=== PATIENT | female | born 1960 | race Caucasian/White ===

== ENCOUNTER → 2019-07-12 | Outpatient (CLI) | payer MEDICARE ==
[2019-07-12 16:26] LABS: African American GFR (CKD) >90 (>60 ml/min/1.73 sqM); Blood Urea Nitrogen 13 mg/dL (7-17)
--- NOTE | 2019-07-12 17:06 | CT ---
EXAMINATION TYPE: CT angio chest DATE OF EXAM: 07/12/2019 4:57 PM COMPARISON: None HISTORY: Tachycardia, dyspnea. Hx LT breast ca CT DLP: 514.90 mGycm Automated exposure control for dose reduction was used. CONTRAST: CTA scan of the thorax is performed with IV Contrast, patient injected with 100 mL of Isovue 370, pul monary embolism protocol. There are 3-D post processed images.. FINDINGS: The lungs are clear of consolidation. There is no evidence of a pulmonary mass. There is no pleural e ffusion. Heart size is normal. There is no pericardial effusion. There is mild enlargement of the thyroid gland. There is no mediastinal adenopathy. There are no stephan r masses. Thoracic aorta shows no aneurysm or dissection. Heart size is normal. There is no pericardial effusion. There is normal contrast opacification of the pulmonary arteries. There are no filling defects. Upper abdominal soft tissues show large calcified gallstone. Spleen is enlarged and measures 14.5 cm. There is some spurring in the thoracic spine. I see no bony destructive process. There is minimal ant erior wedging of a lower thoracic vertebra up to 5-10%. IMPRESSION: No evidence of pulmonary embolism. Mild splenomegaly. Mild goiter. IMPRESSION:
== END | disposition home or self-care (01) ==
LOC: RADCTMAIN 15:26
PROVIDERS: ATTEND Registered Nurse Oncology
DX: R00.0 Tachycardia, unspecified (principal); R06.4 Hyperventilation; R06.03 Acute respiratory distress; C50.412 Malignant neoplasm of upper-outer quadrant of left female breast
CPT/HCPCS: 82565; 84520; 71275; 36415; Q9967

== ENCOUNTER → 2019-07-18 | Outpatient (CLI) | payer MEDICARE ==
--- NOTE | 2019-07-19 07:31 | ECHOF ---
Referral Reason:Z01.818 Encounter for other preprocedural examinat MEASUREMENTS -------- HEIGHT: 172.7 cm WEIGHT: 96.6 kg BP: 149/80 RVIDd: 2.8 cm (< 3.3) IVSd: 1.2 cm (0.6 - 1.1) LVIDd: 3.3 cm (3.9 - 5.3) LVPWd: 1.1 cm (0.6 - 1.1) IVSs: 1.6 cm LVIDs: 2.4 cm LVPWs: 1.8 cm LA Diam: 2.7 cm (2.7 - 3.8) LAESV Index (A-L): 11.75 ml/m Ao Diam: 2.8 cm (2.0 - 3.7) AV Cusp: 1.7 cm (1.5 - 2.6) MV EXCURSION: 16.095 mm (> 18.000) MV EF SLOPE: 60 mm/s (70 - 150) EPSS: 1.2 cm MV E Neto: 0.92 m/s MV DecT: 170 ms MV A Neto: 1.08 m/s MV E/A Ratio: 0.86 RAP: 5.00 mmHg RVSP: 24.55 mmHg FINDINGS -------- Sinus rhythm. This was a technically adequate study. The left ventricular size is normal. There is borderline concentric left ventricular hypertrophy. Overall left ventricular systolic function is normal with, an EF between 60 - 65 %. The diastolic filling pattern is normal for the age of the patient 9.82. The right ventricle is normal in size. Normal LA size by volume 22+/-6 ml/m2. The right atrium is normal in size. Interatrial and interventricular septum intact. The aortic valve is trileaflet and appears structurally normal. There is trace mitral regurgitation. Mild tricuspid regurgitation present. Right ventricular systolic pressure is normal at < 35 mmHg. Trace/mild (physiologic) pulmonic regurgitation. The aortic root size is normal. Normal inferior vena cava with normal inspiratory collapse consistent with estimated right atrial pre ssure of 5 mmHg. There is no pericardial effusion. CONCLUSIONS -------- 1. Sinus rhythm. 2. This was a technically adequate study. 3. The left ventricular size is normal. 4. There is borderline concentric left ventricular hypertrophy. 5. Overall left ventricular systolic function is normal with, an EF between 60 - 65 %. 6. The diastolic filling pattern is normal for the age of the patient 9.82 7. The right ventricle is normal in size. 8. Normal LA size by volume 22+/-6 ml/m2. 9. The right atrium is normal in size. 10. Interatrial and interventricular septum intact. 11. The aortic valve is trileaflet and appears structurally normal. 12. There is trace mitral regurgitation. 13. Mild tricuspid regurgitation present. 14. Right ventricular systolic pressure is normal at < 35 mmHg. 15. Trace/mild (physiologic) pulmonic regurgitation. 16. The aortic root size is normal. 17. Normal inferior vena cava with normal inspiratory collapse consistent with estimated right atrial pressure of 5 mmHg. 18. There is no pericardial effusion. OBSTETRICAL TECH: Daniela Perez RDCS
== END | disposition home or self-care (01) ==
LOC: RADECHMAIN 13:00
PROVIDERS: ATTEND Internal Medicine Hematology & Oncology
DX: Z01.818 Encounter for other preprocedural examination (principal); I08.8 Other rheumatic multiple valve diseases; C50.412 Malignant neoplasm of upper-outer quadrant of left female breast
CPT/HCPCS: 93306

== ENCOUNTER → 2020-04-09 | Outpatient (CLI) | payer MEDICARE ==
--- NOTE | 2020-04-09 09:52 | XR ---
EXAMINATION TYPE: XR lumbosacral spine min 4V DATE OF EXAM: 04/09/2020 COMPARISON: NONE HISTORY: 59-year-old female low back pain, swelling TECHNIQUE: 5 views FINDINGS: 2.6 cm gallstone. Gassy colon. Postsurgical changes of L4-S1 posterior and interbody lumbar fusion. Corresponding laminectomies. Fac et arthropathy above the fusion. Vertebral body heights are preserved and alignment is maintained. IMPRESSION: 1. L4-S1 posterior and interbody fusion with corresponding laminectomies. No vertebral compression co llapse or malalignment. Facet arthropathy above the fusion. 2. A 2.6 cm gallstone.
== END | disposition home or self-care (01) ==
LOC: RADXRMAIN 08:11
PROVIDERS: ATTEND Family Medicine
DX: M47.816 Spondylosis without myelopathy or radiculopathy, lumbar region (principal); Z98.1 Arthrodesis status; Z98.890 Other specified postprocedural states
CPT/HCPCS: 72110

== ENCOUNTER → 2020-06-20 | Outpatient (CLI) | payer MEDICARE ==
--- NOTE | 2020-06-20 08:34 | US ---
EXAMINATION TYPE: US abdomen complete DATE OF EXAM: 06/20/2020 COMPARISON: CT 07/12/19 CLINICAL HISTORY: 60-year-old female R10.9 ABD/PELVIC PAIN. TECHNIQUE: Multiple sonographic images of the abdomen are obtained. FINDINGS: EXAM MEASUREMENTS: Liver Length: 20.5 cm Gallbladder Wall: 0.2 cm CBD: 0.5 cm Spleen: 12.8 cm Right Kidney: 12.2 x 6.7 x 4.6 cm Left Kidney: 12.7 x 6.1 x 5.1 cm Pancreas: Suboptimal visualization of the pancreatic body and tail due to shadowing from bowel gas. Liver: Enlarged but with overall homogeneous echotexture and no focal lesion. Gallbladder: 2cm gallstone with shadowing. No abnormal distention or wall thickening. Evidence for sonographic Anderson's sign: No CBD: wnl Spleen: Within normal limits. Right Kidney: Mid pole cyst = 2.5 x 2.0 x 2.0 cm, No hydronephrosis. Left Kidney: No hydronephrosis. Upper IVC: wnl Abd Aorta: wnl IMPRESSION: 1. Hepatomegaly (20.5 cm). 2. A 2 cm gallstone. No acute cholecystitis or biliary ductal dilatation. 3. A 2.5 cm benign right mid pole renal cyst.
--- NOTE | 2020-06-20 10:56 | CT ---
EXAMINATION TYPE: CT lumbar spine wo con DATE OF EXAM: 06/20/2020 COMPARISON: Plain film 04/09/2020 HISTORY: Back pain CT DLP: 1365.1 mGycm Automated exposure control for dose reduction was used. An unenhanced CT of the lumbar spine was performed. Bone and soft tissue window settings are submitt ed as well as coronal and sagittal reconstructions. FINDINGS: Patient is status post posterior fusion L4-S1, intervertebral spacing block present L5-S1, loss of di sc height present at intervertebral levels, endplates are regular at L4-5, there is associated vacuum phenomenon. There is abnormal low attenuation anterior to the lumbar vertebral bodies extending from L3-4 through the sacral region, the collection measures approximately 6.3 cm in transverse dimension by 16 to 17 cm in cephalad to caudal dimension by 2 cm in anterior to posterior dimension. There is some abnormal asymmetric thickening of the musculature medially adjacent on the left, some low-attenuation is pres ent within the musculature. Unroofing procedure has been performed at L4 and L5, there are facet arthropathy changes. T12-L1 shows posterior extension endplate disc complex causing anterior mass effect on the thecal sac . Mild spinal stenosis. Her graft the sacrum shows a sclerotic appearance as does portions of the rig ht ilium greater than left L5. L1-L2: Posterior extension endplate disc complex causes mild anterior mass effect on the thecal sac. No significant foraminal encroachment or spinal stenosis. L2-L3: Posterior extension endplate disc complex causes anterior mass effect on the thecal sac and li phoebe moderate spinal stenosis. No definite foraminal encroachment. Facet arthropathy with hypertrophy ligamentum flavum causes posterior lateral mass effect on the thecal sac. L3-L4: Posterior extension endplate disc complex causes anterior mass effect on the thecal sac, mild to moderate spinal stenosis. There is marked facet arthropathy change. L4-L5: Loss of disc height is present as described. No evident spinal stenosis or disc herniation. Th ere is artifact present which may limit evaluation. L5-S1: Postop changes are noted, there is artifact present. IMPRESSION: Indeterminate fluid collection anterior to the spine, difficult to exclude abscess. There may be unde rlying osteomyelitis at the level of the sacrum and possibly L5. Difficult to exclude discitis at L4- 5, noncontrast exam, there may be myositis in the musculature in the left hemipelvis as described, le ft piriformis, difficult to exclude intramuscular abscess A [place] level critical message alert has been initiated for Hayden Lopez MD~[id number] via the [employer] Critical Results System on 06/20/2020 10:54 AM. This message alert has been sent to Isma Amador~MYKE via the preferences provided by the clinician for the receipt of Radiology Critical Findings. Message ID [id number].
== END | disposition home or self-care (01) ==
LOC: RADUSWWP 07:31
PROVIDERS: ATTEND Internal Medicine Hematology & Oncology
DX: K80.20 Calculus of gallbladder without cholecystitis without obstruction (principal); N28.1 Cyst of kidney, acquired; R16.0 Hepatomegaly, not elsewhere classified; M54.5 Low back pain
CPT/HCPCS: 72131; 76700

== ENCOUNTER → 2020-07-14 | Outpatient (CLI) | payer MEDICARE ==
--- NOTE | 2020-07-15 03:31 | MR ---
EXAMINATION TYPE: MR lumbar spine wo/w con DATE OF EXAM: 07/14/2020 COMPARISON: 11/18/2011 HISTORY: Vertebral osteomyelitis CONTRAST: Standard multiplanar, multisequence MRI departmental protocol utilizing 10 mL intravenous Gadavist ga dolinium contrast. The lumbar vertebra have normal alignment. There is metal artifact from posterior fusion surgery from L4 to S1. There is mild disc space narrowing from L4 to S1. There is abnormal fluid accumulation ant erior to the lower lumbar spine and sacrum extending from the level of L4 to the S3 vertebra. Fluid m easures up to 2 cm in thickness. The contrast images show enhancement of the margins of the fluid. There is no lumbar compression fracture. The lower lumbar vertebra are obscured to some extent by met al artifact from the fusion surgery. I think that there is some enhancement of the anterior aspect of the L5 vertebral body. There is no evidence of lumbar spinal stenosis. The lumbar nerve roots appear normal. I do not see any nerve root enhancement. The visualized sacroiliac joints are intact. IMPRESSION: There is prevertebral extensive fluid accumulation as above consistent with paraspinal abscess. There is mild enhancement of the margins of the fluid that is suggestive of inflammatory process. There is enhancement of Anterior L5 vertebral body which could be a site of osteomyelitis.
== END | disposition home or self-care (01) ==
LOC: RADMRIMAIN 15:08
PROVIDERS: ATTEND Internal Medicine Hematology & Oncology
DX: C50.412 Malignant neoplasm of upper-outer quadrant of left female breast (principal); R93.7 Abnormal findings on diagnostic imaging of other parts of musculoskeletal system
CPT/HCPCS: 72158; A9585

== ENCOUNTER → 2021-02-18 | Outpatient (CLI) | payer MEDICARE ==
--- NOTE | 2021-02-18 12:16 | MR ---
EXAMINATION TYPE: MR lumbar spine wo/w con DATE OF EXAM: 02/18/2021 COMPARISON: 07/14/2020 HISTORY: Pain, infection TECHNIQUE: Multiplanar, multisequence images of the lumbar spine were acquired utilizing 10 mL intravenous Gadav ist gadolinium contrast. T12-L1: There is a central disc protrusion with mild central canal stenosis. L1-L2: Normal disc appearance without desiccation. No herniation, protrusion or disc bulging. No ca nal stenosis is present. Foramina are patent bilaterally. L2-L3: There is a disc bulge with mild bilateral facet arthropathy and ligamentum flavum hypertrophy resulting in mild bilateral neural foraminal narrowing, similar to the prior exam. L3-L4: There are postoperative changes with a disc bulge resulting in mild bilateral neural foraminal narrowing and mild central canal stenosis, unchanged. L4-L5: There are postoperative changes with moderate right and mild left neural foraminal narrowing, similar to the prior exam. L5-S1: There are postoperative changes without significant central canal stenosis or neural foraminal narrowing. The patient is status post posterior fusion and decompression of L4-S1. There is extensive susceptibi lity artifact due to hardware. Vertebral body heights are grossly preserved. T2 bright lesion is noted in the right kidney, likely a cyst but ultrasound could be performed if con firmation is clinically necessary. The previously seen T2 bright collection anterior to the lumbosacr al spine has decreased in size and measures up to 6.5 x 1.0 cm now only anterior to the sacral spine. No definite internal or surrounding enhancement. IMPRESSION: Interval decrease in size in the collection anterior to the sacrum. There is no definite internal or surrounding enhancement to suggest infection.
== END | disposition home or self-care (01) ==
LOC: RADMRIMAIN 10:31
PROVIDERS: ATTEND Internal Medicine Infectious Disease
DX: M54.5 Low back pain (principal)
CPT/HCPCS: 72158; A9585

== ENCOUNTER 2021-06-08 16:46 | Inpatient (IN) | payer MEDICARE ==
--- NOTE | 2021-06-08 20:18 | ED ---
General Adult HPI - General Chief complaint: Skin/Abscess/Foreign Body Stated complaint: open wound Time Seen by Provider: 06/08/21 20:08 Source: patient Mode of arrival: ambulatory Limitations: no limitations - History of Present Illness Initial comments: Dictation was produced using [employer] dictation software. please excuse any grammatical, word or spelling errors. Chief Complaint: 61-year-old female presents to the emergency department for her chronic wound History of Present Illness: 61-year-old female several years ago in 2002 she had back surgery performed by surgeon who is no longer here [facility]. Proximally year 2 she had some drainage from the surgical site. She's been following up with infectious disease. Over the last couple days she's been complaining of pain to that area. She called her infectious disease doctor was seen in the office. Infectious disease doctor pressed on the area with drainage concerning for infection. She was instructed to come to the emergency department for MRI in the morning and spine surgery consultation. Patient denies any constitutional symptoms. No saddle anesthesia. No bowel or bladder incontinence or retention. The ROS documented in this emergency department record has been reviewed and confirmed by me. Those systems with pertinent positive or negative responses have been documented in the HPI. All other systems are other negative and/or noncontributory. PHYSICAL EXAM: General Impression: Alert and oriented x3, not in acute distress HEENT: Normocephalic atraumatic, extra-ocular movements intact, pupils equal and reactive to light bilaterally, mucous membranes moist. Cardiovascular: Heart regular rate and rhythm Chest: Able to complete full sentences, no retractions, no tachypnea Musculoskeletal: Pulses present and equal in all extremities, no peripheral edema Motor: no focal deficits noted Neurological: CN II-XII grossly intact, no focal motor or sensory deficits noted Skin: Intact with no visualized rashes Back: Surgical site at the lumbar midline area, there is a small punctate wound in the middle of the scar with some mild drainage Psych: Normal affect and mood ED course: 61-year-old female presents to the emergency department for alleged instruction to come to the ER to be admitted for a.m. MRI and orthopedic surgery consult. Patient has a draining wound that's been exacerbated. She states that she was evaluated in ID clinic today and she was instructed to come to the emergency room. Vital signs upon arrival are within acceptable limits. More history was obtained from Dr. adams. He states that patient has had a chronic wound. There is strong concern for infection especially in the office when Dr. Martin drain the wound. There was purulent material that was removed. Dr. Martin recommends that patient be started on vancomycin and cefepime and to have spine surgery on consult. 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 - Related Data Home Medications Medication Instructions Recorded Confirmed Aspirin EC [Ecotrin] 81 mg PO HS 08/06/15 06/08/21 Levothyroxine Sodium [Synthroid] 100 mcg PO DAILY 08/06/15 06/08/21 Multivitamins, Thera [Theragran] 1 tab PO DAILY 08/06/15 06/08/21 Simvastatin [Zocor] 40 mg PO DAILY 08/06/15 06/08/21 metFORMIN HCL [Glucophage] 1,000 mg PO BID 08/06/15 06/08/21 Carvedilol [Coreg] 6.25 mg PO BID 06/08/21 06/08/21 Furosemide [Lasix] 40 mg PO DAILY 06/08/21 06/08/21 Losartan Potassium [Cozaar] 25 mg PO DAILY 06/08/21 06/08/21 Neratinib Maleate [Nerlynx] 240 mg PO DAILY 06/08/21 06/08/21 Pregabalin [Lyrica] 150 mg PO BID 06/08/21 06/08/21 Pyridoxine HCl (Vitamin B6) 100 mg PO HS 06/08/21 06/08/21 [Vitamin B-6] Spironolactone [Aldactone] 12.5 mg PO DAILY 06/08/21 06/08/21 glipiZIDE XL [Glucotrol XL] 2.5 mg PO BID 06/08/21 06/08/21 Allergies Allergy/AdvReac Type Severity Reaction Status Date / Time adhesive tape AdvReac Unknown Verified 06/08/21 17:57 Review of Systems ROS Statement: Those systems with pertinent positive or pertinent negative responses have been documented in the HPI. ROS Other: All systems not noted in ROS Statement are negative. Past Medical History Past Medical History: Diabetes Mellitus, Hyperlipidemia, Hypertension, Musculoskeletal Disorder, Thyroid Disorder Additional Past Medical History / Comment(s): HX OF ANEMIA, BACK PAIN. History of Any Multi-Drug Resistant Organisms: MRSA Date of last positivie culture/infection: 05/26/20 MDRO Source:: back Past Surgical History: Back Surgery, Orthopedic Surgery, Tubal Ligation Additional Past Surgical History / Comment(s): LEFT LEG SURG FOR FX X2 (1986), LEFT FUSED ANKLE, CARPAL TUNNEL. Past Anesthesia/Blood Transfusion Reactions: Postoperative Nausea & Vomiting (PONV) Past Psychological History: No Psychological Hx Reported Smoking Status: Never smoker Past Alcohol Use History: Rare Past Drug Use History: None Reported - Past Family History Father Family Medical History: Cancer Additional Family Medical History / Comment(s): ? PRE-LEUKEMIA General Exam Limitations: no limitations Course Vital Signs 06/08/21 17:54 Temperature 99.3 F Pulse Rate 98 Respiratory 18 Rate Blood Pressure 137/78 O2 Sat by Pulse 98 Oximetry Disposition Referrals: Eloy Correa Jr, DO [Primary Care Provider] - 1-2 days
[2021-06-08] MEDS ORDERED: VANCOMYCIN IV PER PHARMACY 1 EACH MISC MISCELLANE PRN (20:43)
[2021-06-08] MEDS ORDERED: CEFEPIME 2 GM in SODIUM CHLORIDE 0.9% 100 ML IVPB STA (20:44)
[2021-06-08] MEDS ORDERED: NALOXONE 0.4 MG/ML 1 ML VIAL IV PRN (20:52)
[2021-06-08 20:59] LABS: Basophils % (A) 1 %; Eosinophils # (A) 0.2 k/uL (0-0.7); Eosinophils % (A) 3 %; HCT 37.2 % (34.0-46.0); HGB 12.1 gm/dL (11.4-16.0); Lymphocytes # (A) 1.1 k/uL (1.0-4.8); Lymphocytes % (A) 21 %; MCHC 32.7 g/dL (31.0-37.0); MCV 91.7 fL (80.0-100.0); Mean Platelet Volume 7.7; Monocytes # (A) 0.4 k/uL (0-1.0); Monocytes % (A) 8 %; Neutrophils # (A) 3.2 k/uL (1.3-7.7); Neutrophils % (A) 65 %; Platelet Count 205 k/uL (150-450); RBC 4.05 m/uL (3.80-5.40); RDW 15.3 % (11.5-15.5); WBC 4.9 k/uL (3.8-10.6)
[2021-06-08 21:13] LABS: C Reactive Protein 0.7 mg/dL (<1.0); Potassium 3.8 mmol/L (3.5-5.1)
[2021-06-08 21:37] LABS: Erythrocyte Sedimentation Rate 29 mm/hr (0-20)
[2021-06-08] MEDS ORDERED: VANCOMYCIN 2,000 MG in SODIUM CHLORIDE 0.9% 500 ML 500 ML IVPB ONE (22:00)
[2021-06-09] MEDS: [UNRECOGNIZED DRUG - OTHER] PO SCH (10:18)
[2021-06-09] MEDS: carvediloL 6.25 MG TAB PO SCH ×2 (10:56→18:15)
[2021-06-09] MEDS: LEVOTHYROXINE 100 MCG TAB PO SCH (10:56)
[2021-06-09] MEDS: ATORVASTATIN 20 MG TAB PO SCH (10:56)
[2021-06-09] MEDS: LOSARTAN 25 MG TAB PO SCH (10:56)
[2021-06-09] MEDS: FUROSEMIDE 40 MG TAB PO SCH (10:56)
[2021-06-09] MEDS: PREGABALIN 75 MG CAP PO SCH ×2 (10:57→21:01)
[2021-06-09] MEDS: metFORMIN 500 MG TAB PO SCH ×2 (10:57→21:00)
[2021-06-09] MEDS: SPIRONOLACTONE 25 MG TAB PO SCH (10:57)
[2021-06-09] MEDS: MULTIVITAMINS, THERA 1 EACH TAB PO SCH (11:35)
--- NOTE | 2021-06-09 14:23 | P.HPIM ---
History of Present Illness H&P Date: 06/09/21 Chief Complaint: draining wound This is a pleasant 61-year-old white female. She has a history of lumbosacral surgery 2002. She then had breast cancer and underwent radiation and chemotherapy in 2019. She reports in March 2020 experiencing a blister/abscess to her lumbosacral back, midline, where she had the back surgery previously. Shes had drainage from the area. She has seen infectious disease about it. She has seen [facility] for several days about this and been on antibiotics with Cipro for sometime. It is not cleared up. She came in emergency room today at the behest of Dr. Martin after had seen the wound in the office and wanted an MRI and evaluation by spine orthopedics. Currently she has no complaints of chest pains, pressures, shortness breath, nausea vomiting. She would like to go home as soon as possible. She is scheduled for an MRI or else mine soon. Review of Systems All systems: negative Past Medical History Past Medical History: Diabetes Mellitus, Hyperlipidemia, Hypertension, Musculoskeletal Disorder, Thyroid Disorder Additional Past Medical History / Comment(s): HX OF ANEMIA, BACK PAIN. History of Any Multi-Drug Resistant Organisms: MRSA Date of last positivie culture/infection: 05/26/20 MDRO Source:: back Past Surgical History: Back Surgery, Orthopedic Surgery, Tubal Ligation Additional Past Surgical History / Comment(s): LEFT LEG SURG FOR FX X2 (1986), LEFT FUSED ANKLE, CARPAL TUNNEL. Past Anesthesia/Blood Transfusion Reactions: Postoperative Nausea & Vomiting (PONV) Past Psychological History: No Psychological Hx Reported Smoking Status: Never smoker Past Alcohol Use History: Rare Past Drug Use History: None Reported - Past Family History Father Family Medical History: Cancer Additional Family Medical History / Comment(s): ? PRE-LEUKEMIA Medications and Allergies Home Medications Medication Instructions Recorded Confirmed Type Aspirin EC [Ecotrin] 81 mg PO HS 08/06/15 06/08/21 History Levothyroxine Sodium [Synthroid] 100 mcg PO DAILY 08/06/15 06/08/21 History Multivitamins, Thera [Theragran] 1 tab PO DAILY 08/06/15 06/08/21 History Simvastatin [Zocor] 40 mg PO DAILY 08/06/15 06/08/21 History metFORMIN HCL [Glucophage] 1,000 mg PO BID 08/06/15 06/08/21 History Carvedilol [Coreg] 6.25 mg PO BID 06/08/21 06/08/21 History Furosemide [Lasix] 40 mg PO DAILY 06/08/21 06/08/21 History Losartan Potassium [Cozaar] 25 mg PO DAILY 06/08/21 06/08/21 History Neratinib Maleate [Nerlynx] 240 mg PO DAILY 06/08/21 06/08/21 History Pregabalin [Lyrica] 150 mg PO BID 06/08/21 06/08/21 History Pyridoxine HCl (Vitamin B6) 100 mg PO HS 06/08/21 06/08/21 History [Vitamin B-6] Spironolactone [Aldactone] 12.5 mg PO DAILY 06/08/21 06/08/21 History glipiZIDE XL [Glucotrol XL] 2.5 mg PO BID 06/08/21 06/08/21 History Allergies Allergy/AdvReac Type Severity Reaction Status Date / Time adhesive tape AdvReac Unknown Verified 06/08/21 17:57 Physical Exam Vitals: Vital Signs Temp Pulse Resp BP Pulse Ox 06/09/21 06:30 97.9 F 77 18 125/71 98 06/09/21 05:00 87 18 97 06/09/21 04:00 18 06/09/21 02:03 18 06/09/21 00:00 91 16 132/78 95 06/08/21 21:00 89 18 131/74 95 06/08/21 17:54 99.3 F 98 18 137/78 98 Intake and Output 06/08/21 06/09/21 06/09/21 22:59 06:59 14:59 Other: Weight 111.584 kg - Constitutional General appearance: obese - EENT Eyes: PERRLA - Neck Neck: no lymphadenopathy, normal ROM Carotids: bilateral: upstroke normal Thyroid: bilateral: normal size - Respiratory Respiratory: bilateral: CTA - Cardiovascular Rhythm: regular Heart sounds: normal: S1, S2 - Gastrointestinal General gastrointestinal: normal bowel sounds - Integumentary small pore from midline Lspine, No current discharge.minimnal periwound erythema - Neurologic Neurologic: CNII-XII intact - Musculoskeletal Musculoskeletal: gait normal - Psychiatric Psychiatric: A&O x's 3 Results CBC & Chem 7: 06/08/21 20:45 06/08/21 20:45 Labs: Abnormal Lab Results - Last 24 Hours (Table) 06/08/21 06/08/21 Range/Units 20:45 20:45 ESR 29 H (0-20) mm/hr BUN 20 H (7-17) mg/dL Glucose 177 H (74-99) mg/dL Microbiology - Last 24 Hours (Table) 06/08/21 20:45 Gram Stain - Preliminary Back Wound Culture - Preliminary Assessment and Plan (1) Type 2 diabetes mellitus without complications Current Visit: Yes Status: Acute Code(s): E11.9 - TYPE 2 DIABETES MELLITUS WITHOUT COMPLICATIONS SNOMED Code(s): 632088881 (2) H/O therapeutic radiation Current Visit: Yes Status: Acute Code(s): Z92.3 - PERSONAL HISTORY OF IRRADIATION SNOMED Code(s): 082443618 (3) H/O lumbosacral spine surgery Current Visit: Yes Status: Acute Code(s): Z98.890 - OTHER SPECIFIED POSTPROCEDURAL STATES SNOMED Code(s): 278987813 (4) Wound infection Current Visit: Yes Status: Acute Code(s): T14.8XXA - OTHER INJURY OF UNSPECIFIED BODY REGION, INITIAL ENCOUNTER; L08.9 - LOCAL INFECTION OF THE SKIN AND SUBCUTANEOUS TISSUE, UNSP SNOMED Code(s): 14042726 Plan: wait on MRI check on labs wait on ID recommendations and pts insistance on going home wait on Ortho reccomendations recheck in am
--- NOTE | 2021-06-09 14:49 | MR ---
EXAMINATION TYPE: MR lumbar spine wo/w con DATE OF EXAM: 06/09/2021 COMPARISON: MR lumbar spine 02/18/2021 HISTORY: Abscess, previous abnormal MRI lumbar spine. TECHNIQUE: Multiplanar, multisequence images of the lumbar spine were acquired without and with 10 mL intravenou s Gadavist gadolinium contrast. Postop changes are again noted status post posterior fusion L4-S1, there is susceptibility artifact d ue to patient's hardware. Alignment is stable, intervertebral spacing block present L5-S1, L4-5. Ther e is multilevel spondylosis, there are endplate discogenic marrow signal changes similar to prior exa m consistent with disc desiccation and degenerative disc disease. Loss of disc height is greatest at L2-3 with associated loss of disc signal consistent with disc desiccation and degenerative disc disea se. Similar findings are present at T12-L1. The presacral fluid signal seen on prior exam has decreased in size as compared to prior. L1-L2: Normal disc appearance without desiccation. No herniation, protrusion or disc bulging. No ca nal stenosis is present. Foramina are patent bilaterally. L2-L3: Posterior broad-based disc bulge causes anterior mass effect on the thecal sac somewhat eccent pablo towards the right. There is facet arthropathy with hypertrophy ligamentum flavum causing trefoil appearance of the thecal sac. Only mild to moderate spinal stenosis is noted. L3-L4: Mild anterolisthesis grade 1 L3-4, posterior broad-based disc bulge contacts anterior thecal s ac. There is facet arthropathy causing posterior lateral mass effect on the thecal sac. No significan t spinal stenosis. L4-L5: No evident disc herniation. Circumferential extension endplate disc complex encroaches on the neural foramina. No significant spinal stenosis. L5-S1: No significant spinal stenosis or foraminal encroachment. There is an oval shape signal abnorm ality posterior to the disc space which was seen on prior exam in the subligamentous location, T1 inc reased signal, T2 intermediate measuring approximately 13 to 14 mm in cephalad to caudal dimension by 7 mm in AP dimension which slightly diminished in size as compared to prior MR no significant mass e ffect on the thecal sac, there may be contact with the proximal left S1 nerve root however, findings may represent epidural fluid., Correlate for left S1 radiculopathy. No evident disc herniation. Lumbar segments are intact. No paraspinal masses are identified. Conus medullaris has a normal appe arance. T2 bright focus associated with the right kidney consistent with cyst. No abnormal enhancemen t to suggest abscess. Gallstone is noted incidentally. IMPRESSION: Findings may be indicative of improving postoperative fluid collections as described. Correlate for l eft S1 radiculopathy.
[2021-06-09] MEDS: VANCOMYCIN 2,000 MG in SODIUM CHLORIDE 0.9% 500 ML 500 ML IVPB SCH (14:59)
[2021-06-09] MEDS: CEFEPIME 2 GM in SODIUM CHLORIDE 0.9% 100 ML IVPB SCH ×2 (15:02→21:02)
[2021-06-09] MEDS: SODIUM CHLORIDE 0.9% 1,000 ML IV SCH ×2 (16:19→21:01)
--- NOTE | 2021-06-09 18:28 | P.CNOR ---
History of Present Illness - HPI Consult date: 06/09/21 Consult reason: other (Low back pain, history of previous lumbar surgery, infection concern) History of present illness: Patient is a 61-year-old female who was admitted to [facility] yesterday evening after visit with her infectious disease doctor. Patient has a relatively until history regarding her lumbar spine. Patient originally had undergone a procedure back in 2002 on her lumbar spine. Patient had done very well for many years. Patient developed a blisterlike formation over the incision on the lumbar spine in March 2020, she has been followed by infectious disease since then. She has been on and off oral antibiotics since then. Patient does have a history of breast cancer diagnosed in 2018 and has undergone treatment[address] Abdi, the infectious disease doctor has been in contact with Dr. Toribio our orthopedic spine surgeon regarding this patient. Patient has had a few different MRIs of the lumbar spine, most recent one was today 06/09/2021. She also had one on 02/18/2021 and 07/14/2020. There is concern over a fluid collection anterior to the sacrum. We had recommended patient be evaluated at a tertiary care facility regarding possible treatment for this. Patient states that she spent about a week at [facility], there was an attempt at aspirating this fluid but was not successful. Patient was then sent home, she is been on oral antibiotics like stated prior. At the office visit with infectious disease yesterday, he was able to culture some fluid from a pustule in the lumbar spine region. Awaiting results of that at this time. At bedside today, Dr. Toribio was available to examine the patient in the observation unit. She notes localized pain in that area where the pustule is present. She denies any radicular symptoms involving the bilateral lower extremities. She denies any weakness of the bilateral lower extremities. She denies any discomfort or weakness in the bilateral upper extremity is. She denies any recent trauma, this including falls. She denies any bowel or bladder dysfunction, she denies any perineal or genital numbness or tingling. Past Medical History Past Medical History: Diabetes Mellitus, Hyperlipidemia, Hypertension, Musculoskeletal Disorder, Thyroid Disorder Additional Past Medical History / Comment(s): HX OF ANEMIA, BACK PAIN. History of Any Multi-Drug Resistant Organisms: MRSA Year Discovered:: 05/26/20 MDRO Source:: back Past Surgical History: Back Surgery, Orthopedic Surgery, Tubal Ligation Additional Past Surgical History / Comment(s): LEFT LEG SURG FOR FX X2 (1986), LEFT FUSED ANKLE, CARPAL TUNNEL. Past Anesthesia/Blood Transfusion Reactions: Postoperative Nausea & Vomiting (PONV) Past Psychological History: No Psychological Hx Reported Smoking Status: Never smoker Past Alcohol Use History: Rare Past Drug Use History: None Reported - Past Family History Father Family Medical History: Cancer Additional Family Medical History / Comment(s): ? PRE-LEUKEMIA Medications and Allergies Home Medications Medication Instructions Recorded Confirmed Type Aspirin EC [Ecotrin] 81 mg PO HS 08/06/15 06/08/21 History Levothyroxine Sodium [Synthroid] 100 mcg PO DAILY 08/06/15 06/08/21 History Multivitamins, Thera [Theragran] 1 tab PO DAILY 08/06/15 06/08/21 History Simvastatin [Zocor] 40 mg PO DAILY 08/06/15 06/08/21 History metFORMIN HCL [Glucophage] 1,000 mg PO BID 08/06/15 06/08/21 History Carvedilol [Coreg] 6.25 mg PO BID 06/08/21 06/08/21 History Furosemide [Lasix] 40 mg PO DAILY 06/08/21 06/08/21 History Losartan Potassium [Cozaar] 25 mg PO DAILY 06/08/21 06/08/21 History Neratinib Maleate [Nerlynx] 240 mg PO DAILY 06/08/21 06/08/21 History Pregabalin [Lyrica] 150 mg PO BID 06/08/21 06/08/21 History Pyridoxine HCl (Vitamin B6) 100 mg PO HS 06/08/21 06/08/21 History [Vitamin B-6] Spironolactone [Aldactone] 12.5 mg PO DAILY 06/08/21 06/08/21 History glipiZIDE XL [Glucotrol XL] 2.5 mg PO BID 06/08/21 06/08/21 History Allergies Allergy/AdvReac Type Severity Reaction Status Date / Time adhesive tape AdvReac Unknown Verified 06/08/21 17:57 Physical Examination Gen: AOx3, NAD VSS stable at this time Integument: Well-healed incision in the lumbar spine region, there is a small pustule like blister in the midline and the incision. There is no surrounding erythema present. There is no obvious fluctuance appreciated on exam. There is no obvious drainage on exam. No obvious skin changes are appreciated throughout cervical or thoracic spine Palpation: No tenderness with palpation in the midline and paraspinal region of the cervical or thoracic spine. Mild tenderness is appreciated in the midline area of the pustule located in the lumbar spine region. No paraspinal tenderness is appreciated. ROM: Full range of motion is noted in the bilateral upper extremities in all major muscle groups Full range of motion is noted in the bilateral lower extremities in all major muscle groups Sensory Exam: Senory exam to light touch is intact C5-T1 Senosry exam to light touch is intact L2-S1 Motor: 55 strength is appreciated in the bilateral upper extremities with shoulder elevation, shoulder abduction, elbow extension, elbow flexion, wrist extension, wrist flexion, finger intrinsics 5-5 strength is appreciated in the bilateral lower extremities with hip flexion, knee flexion, knee extension, plantar flexion, dorsiflexion, EHL, FHL Reflexes: 2/4 in all UE and LE Negative Matthieu's, clonus, Babinski bilaterally Results - Labs Labs: Abnormal Lab Results - Last 24 Hours (Table) 06/08/21 06/08/21 Range/Units 20:45 20:45 ESR 29 H (0-20) mm/hr BUN 20 H (7-17) mg/dL Glucose 177 H (74-99) mg/dL Microbiology - Last 24 Hours (Table) 06/08/21 00:12 Anaerobic Culture - Preliminary Back 06/08/21 20:45 Gram Stain - Preliminary Back Wound Culture - Preliminary H & H 06/08/21 Range/Units 20:45 Hgb 12.1 (11.4-16.0) gm/dL Hct 37.2 (34.0-46.0) % Result Diagrams: 06/08/21 20:45 06/08/21 20:45 - Diagnostic results Lumbar MRI with contrast: report reviewed, image reviewed Assessment and Plan Assessment: Abnormal skin lesion lumbar spine Previous lumbar spine fusion Fluid collection anterior to lumbar/sacral spine History of breast cancer Plan: Dr. Toribio was available today to discuss further treatment options including imaging studies. MRI of the lumbar spine will be ordered to further evaluate the soft tissues and lumbar spine. Await results, we'll discuss the patient There is still concern for the fluid that is present anterior to the lumbar/sacral spine. We would likely recommend transfer to a tertiary care facility for further evaluation and treatment, this included [facility], [facility], [facility]. Recommend weight-bear as tolerated this time GI and DVT prophylaxis per primary medical service Other medical special recommendations Further recommendations to follow Time with Patient: Less than 30
[2021-06-09] MEDS ORDERED: PYRIDOXINE 50 MG TAB PO SCH (21:00)
[2021-06-09] MEDS ORDERED: ASPIRIN 81 MG PO SCH (21:00)
[2021-06-10] MEDS: VANCOMYCIN 2,000 MG in SODIUM CHLORIDE 0.9% 500 ML 500 ML IVPB SCH (04:14)
[2021-06-10] MEDS: CEFEPIME 2 GM in SODIUM CHLORIDE 0.9% 100 ML IVPB SCH (05:22)
[2021-06-10] MEDS: LEVOTHYROXINE 100 MCG TAB PO SCH (06:01)
[2021-06-10 07:10] LABS: African American GFR (CKD) 86 (>60 ml/min/1.73 sqM); Anion Gap 8 mmol/L; Blood Urea Nitrogen 19 mg/dL (7-17); Calcium 9.6 mg/dL (8.4-10.2); Carbon Dioxide 25 mmol/L (22-30); Chloride 106 mmol/L (98-107); Glucose 185 mg/dL (74-99); Magnesium 1.8 mg/dL (1.6-2.3); Non-African American GFR(CKD) 75 (>60 ml/min/1.73 sqM); Potassium 3.9 mmol/L (3.5-5.1); Sodium 139 mmol/L (137-145)
[2021-06-10 07:30] VITALS: RESP 17
[2021-06-10] MEDS: metFORMIN 500 MG TAB PO SCH (07:32)
[2021-06-10] MEDS: MULTIVITAMINS, THERA 1 EACH TAB PO SCH (07:32)
[2021-06-10] MEDS: PREGABALIN 75 MG CAP PO SCH (07:32)
[2021-06-10] MEDS: LOSARTAN 25 MG TAB PO SCH (07:32)
[2021-06-10] MEDS: carvediloL 6.25 MG TAB PO SCH (07:32)
[2021-06-10] MEDS: ATORVASTATIN 20 MG TAB PO SCH (07:33)
[2021-06-10] MEDS: SPIRONOLACTONE 25 MG TAB PO SCH (08:09)
[2021-06-10] MEDS: FUROSEMIDE 40 MG TAB PO SCH (08:09)
[2021-06-10] MEDS: [UNRECOGNIZED DRUG - OTHER] PO SCH (08:09)
--- NOTE | 2021-06-10 08:47 | P.PN ---
Subjective Progress Note Date: 06/10/21 Principal diagnosis: Skin lesion lumbar spine, previous lumbar spine surgery, abnormal fluid collection anterior lumbar/sacral spine Patient was evaluated today at bedside, Dr. Toribio was also available to examine the patient. Patient is very eager to return home. She is having no acute pain with regards to the low back. She is demonstrating no acute radicular symptoms of the bilateral lower extremity or bilateral upper extremities. Patient has continued to remain medically stable at this time. Objective - Vital Signs Vital signs: Vital Signs Temp 98.2 F 06/10/21 07:29 Pulse 102 H 06/10/21 07:29 Resp 17 06/10/21 07:29 BP 127/73 06/10/21 07:29 Pulse Ox 97 06/10/21 07:29 Intake & Output 06/09/21 06/10/21 06/10/21 18:59 06:59 18:59 Weight 111.584 kg Other: Voiding Method Toilet # Voids 1 - Exam Gen: AOx3, NAD VSS stable at this time Integument: Well-healed incision in the lumbar spine region, there is a small pustule like blister in the midline and the incision. There is no surrounding erythema present. There is no obvious fluctuance appreciated on exam. There is no obvious drainage on exam. No obvious skin changes are appreciated throughout cervical or thoracic spine Palpation: No tenderness with palpation in the midline and paraspinal region of the cervical or thoracic spine. Mild tenderness is appreciated in the midline area of the pustule located in the lumbar spine region. No paraspinal tenderness is appreciated. ROM: Full range of motion is noted in the bilateral upper extremities in all major muscle groups Full range of motion is noted in the bilateral lower extremities in all major muscle groups Sensory Exam: Senory exam to light touch is intact C5-T1 Senosry exam to light touch is intact L2-S1 Motor: 55 strength is appreciated in the bilateral upper extremities with shoulder elevation, shoulder abduction, elbow extension, elbow flexion, wrist extension, wrist flexion, finger intrinsics 5-5 strength is appreciated in the bilateral lower extremities with hip flexion, knee flexion, knee extension, plantar flexion, dorsiflexion, EHL, FHL Reflexes: 2/4 in all UE and LE Negative Matthieu's, clonus, Babinski bilaterally - Labs CBC & Chem 7: 06/08/21 20:45 06/10/21 05:35 Labs: Abnormal Lab Results - Last 24 Hours (Table) 06/09/21 06/10/21 Range/Units 09:39 05:35 BUN 19 H (7-17) mg/dL Glucose 185 H (74-99) mg/dL Hemoglobin A1c 7.0 H (4.0-6.0) % Microbiology - Last 24 Hours (Table) 06/08/21 20:45 Blood Culture - Preliminary Blood No Growth after 24 hours 06/08/21 20:54 Blood Culture - Preliminary Blood No Growth after 24 hours 06/08/21 00:12 Anaerobic Culture - Preliminary Back 06/08/21 20:45 Gram Stain - Preliminary Back Wound Culture - Preliminary Assessment and Plan Assessment: Skin lesion lumbar spine Previous lumbar spine fusion Fluid collection anterior to lumbar/sacral spine History of breast cancer Plan: A long discussion was had with the patient today at bedside regarding her current medical condition. Patient has continued to remain stable while she was remained on oral antibiotics. Patient states that from her previous breast cancer, she's continued to undergone an immunotherapy type treatment that is to be done for a full year after the initial treatment. This treatment has been prolonged due to other medical problems in hospital visits. Very difficult to determine at this time if there is evidence of infection present in the lumbar spine. We had a discussion with the patient today regarding the option of a revision lumbar surgery which will be a very extensive surgery, this would include removal of hardware and likely re-instrumentation. Dr. Toribio plans to reach out and discuss the case with Dr. Nixon. Patient is scheduled to see Dr. Toribio in the outpatient setting in the next few weeks. Taking into consideration patient's current clinical presentation, her immunotherapy treatment, the unclear diagnosis of the fluid collection anterior to the lumbar/sacral spine and also her continuation of oral antibiotics, surgery involving the lumbar spine at this time is not recommended. There is still concern for the fluid that is present anterior to the lumbar/sacral spine. W the fluid collection is notably reduced when comparing to previous MRIs. Patient would still benefit from further workup by general surgery/vascular surgery and tertiary care facility for further evaluation. Recommend weight-bear as tolerated this time GI and DVT prophylaxis per primary medical service Other medical special recommendations Recommend follow-up in the outpatient setting in the coming weeks to discuss further treatment. Time with Patient: Less than 30
[2021-06-10 08:57] LABS: Magnesium 2.1 mg/dL (1.5-2.4); Prealbumin 28.5 mg/dL (18.0-42.0)
[2021-06-10 09:06] LABS: Basophils # (A) 0.02 X 10*3/uL (0.00-0.10); Basophils % (A) 0.4 %; Eosinophils # (A) 0.13 X 10*3/uL (0.04-0.35); Eosinophils % (A) 2.9 %; HCT 34.9 % (37.2-46.3); Lymphocytes # (A) 0.91 X 10*3/uL (0.90-5.00); MCH 28.8 pg (27.0-32.0); MCHC 31.5 g/dL (32.0-37.0); MCV 91.4 fL (80.0-97.0); Mean Platelet Volume 10.1 fL (9.5-12.2); Monocytes # (A) 0.48 X 10*3/uL (0.20-1.00); Monocytes % (A) 10.6 %; Neutrophils # (A) 2.97 X 10*3/uL (1.80-7.70); Neutrophils % (A) 65.4 %; Platelet Count 178 X 10*3/uL (140-440); RBC 3.82 X 10*6/uL (4.10-5.20); WBC 4.54 X 10*3/uL (4.50-10.00)
--- NOTE | 2021-06-10 13:36 | P.CONS ---
History of Present Illness - Reason for Consult Consult date: 06/09/21 Lumbar spine incision infection Requesting physician: Aric Haney - Chief Complaint back pain and drainage from wound x few days - History of Present Illness History of Present Illness : Patient is a 61-year female with a past medical history significant for lumbar spine fusion surgery done back in 2002 patient's seem to have a problem with the drainage from the incision last year at which point she did have an MRI that was suspicious for a abscess for the patient was evaluated [facility] apparently she did have a some sort of scan done and was told no evidence of any infection and no post procedure was done and subsequently patient was discharged home advised to follow-up with me patient is currently seen in the outpatient setting and is on suppressive oral Cipro therapy and there is concern for possible hardware infection as previous culture done from that it was positive for MSSA and Pseudomonas patient did call me over the weekend concerning for reopening of the incision and drainage along with more pain to the lower back area describing it to be more of a dull aching to sharp 5-6 over 10 no radiation patient was evaluated the office and did have cultures obtained with concern for possible worsening infection and abscess she has been referred to the ER the patient was admitted she was given a dose of vancomycin and cefepime infectious was consulted for further management Review of system: CONSTITUTIONAL: Positive for weakness denies high-grade fever. EYES: No complaint. ENT: No complaint. RESPIRATORY: No complaint. CARDIOVASCULAR: No complaint. GENITOURINARY: No complaint. GASTROINTESTINAL: No complaint. MUSCULOSKELETAL: As per history of present illness INTEGUMENTARY : No complaint. PSYCHOLOGIC: No complaint. ENDOCRINE: No complaint. NEUROLOGIC: No complaint. Past medical history : Reviewed, documented below Past surgical history : Reviewed, documented below Social history: Reviewed, documented below Medications: Reviewed, as documented below EXAMINATION: Vital sigans= Reviewed and documented below GENERAL DESCRIPTION: Middle-aged FEmale lying in bed, no distress. No tachypnea or accessory muscle of respiration use. HEENT: Shows Pallor , no scleral icterus. Oral mucous membrane is dry. NECK: Trachea central, no thyromegaly. LUNGS: Unlabored breathing. Clear to auscultation anteriorly. No wheeze or crackle. HEART: S1, S2, regular rate and rhythm. ABDOMEN: Soft, no tenderness , guarding or rigidity EXTREMITIES: No edema feet SKIN: No rash, no masses palpable. Small blister middle of the lumbar incision currently not draining surrounding the cyst line improve NEUROLOGICAL: The patient is awake, alert, oriented x3, mood and affect normal. LABS AND RADIOLOGY: Reviewed results see below Assessment : Patient with a history of lumbar spine surgery back in 2002 surgeon is currently not practicing in [place] last year she did have a small draining wound which was cultured and grew Pseudomonas and MSSA subsequent MRI was suspicious for paraspinal fluid collection for the patient was sent to [facility] neurosurgery intervention was done patient is currently on suppressive oral Cipro therapy with concern for possible hardware infection and admitted to hospital with more pain and drainage and concern for possible worsening infection Plan: 1-vancomycin pharmacy to dose target trough of 15 while watching kidney function and vancomycin trough closely and cefepime 2 g 8-hour to continue 2-MRI of the lumbosacral spine has been ordered waiting for it to be completed 3-further work-up on the basis of the MRI result We will follow on clinical condition and cultures to further adjust medication if needed Thank you for this consultation we will follow the patient along with you Past Medical History Past Medical History: Diabetes Mellitus, Hyperlipidemia, Hypertension, Musculoskeletal Disorder, Thyroid Disorder Additional Past Medical History / Comment(s): HX OF ANEMIA, BACK PAIN. History of Any Multi-Drug Resistant Organisms: MRSA Year Discovered:: 05/26/20 MDRO Source:: back Past Surgical History: Back Surgery, Orthopedic Surgery, Tubal Ligation Additional Past Surgical History / Comment(s): LEFT LEG SURG FOR FX X2 (1986), LEFT FUSED ANKLE, CARPAL TUNNEL. Past Anesthesia/Blood Transfusion Reactions: Postoperative Nausea & Vomiting (PONV) Past Psychological History: No Psychological Hx Reported Smoking Status: Never smoker Past Alcohol Use History: Rare Past Drug Use History: None Reported - Past Family History Father Family Medical History: Cancer Additional Family Medical History / Comment(s): ? PRE-LEUKEMIA Medications and Allergies Home Medications Medication Instructions Recorded Confirmed Type Aspirin EC [Ecotrin] 81 mg PO HS 08/06/15 06/08/21 History Levothyroxine Sodium [Synthroid] 100 mcg PO DAILY 08/06/15 06/08/21 History Multivitamins, Thera [Theragran] 1 tab PO DAILY 08/06/15 06/08/21 History Simvastatin [Zocor] 40 mg PO DAILY 08/06/15 06/08/21 History metFORMIN HCL [Glucophage] 1,000 mg PO BID 08/06/15 06/08/21 History Carvedilol [Coreg] 6.25 mg PO BID 06/08/21 06/08/21 History Furosemide [Lasix] 40 mg PO DAILY 06/08/21 06/08/21 History Losartan Potassium [Cozaar] 25 mg PO DAILY 06/08/21 06/08/21 History Neratinib Maleate [Nerlynx] 240 mg PO DAILY 06/08/21 06/08/21 History Pregabalin [Lyrica] 150 mg PO BID 06/08/21 06/08/21 History Pyridoxine HCl (Vitamin B6) 100 mg PO HS 06/08/21 06/08/21 History [Vitamin B-6] Spironolactone [Aldactone] 12.5 mg PO DAILY 06/08/21 06/08/21 History glipiZIDE XL [Glucotrol XL] 2.5 mg PO BID 06/08/21 06/08/21 History Allergies Allergy/AdvReac Type Severity Reaction Status Date / Time adhesive tape AdvReac Unknown Verified 06/08/21 17:57 Physical Exam Vitals: Vital Signs Temp Pulse Resp BP Pulse Ox 06/09/21 06:30 97.9 F 77 18 125/71 98 06/09/21 05:00 87 18 97 06/09/21 04:00 18 06/09/21 02:03 18 06/09/21 00:00 91 16 132/78 95 06/08/21 21:00 89 18 131/74 95 06/08/21 17:54 99.3 F 98 18 137/78 98 Intake and Output 06/08/21 06/09/21 06/09/21 22:59 06:59 14:59 Other: Weight 111.584 kg Results CBC & Chem 7: 06/10/21 06:10 06/10/21 05:35 Labs: Abnormal Lab Results - Last 24 Hours (Table) 06/08/21 06/08/21 Range/Units 20:45 20:45 ESR 29 H (0-20) mm/hr BUN 20 H (7-17) mg/dL Glucose 177 H (74-99) mg/dL Microbiology - Last 24 Hours (Table) 06/08/21 20:45 Gram Stain - Preliminary Back Wound Culture - Preliminary
[2021-06-10 14:39] VITALS: BP 123/75; PULSE 81; TEMP 98
--- NOTE | 2021-06-10 14:57 | PN ---
PROGRESS NOTE DATE OF SERVICE: 06/10/2021 REASON FOR FOLLOWUP: Lumbar incisional wound drainage and concerning for abscess. INTERVAL HISTORY: Patient is afebrile. The patient is currently breathing comfortably. Patient denies having any chest pain. No shortness of breath or cough. No worsening pain to the lower back area and no further drainage. PHYSICAL EXAMINATION: Blood pressure 127/73 with a pulse of 102. Temperature 98.0. She is 97% on room air. General description is a middle-aged female up in the chair in no distress. Respiratory system: Unlabored breathing, clear to auscultation anteriorly. Heart S1, S2. Regular rate and rhythm. Abdomen: Soft. No tenderness. LABS: Hemoglobin is 11, white count 4.5. BUN of 19, creatinine 0.84. DIAGNOSTIC IMPRESSION AND PLAN: Patient with concern for a lumbosacral spine abscess, cellulitis with draining wound. However, the MRI shows rapid improvement. Sed rate is mildly elevated. CRP is normal. Cultures those were done in the office, were reviewed at [facility] and not growing anything. She is currently on oral Cipro to continue. Close outpatient follow up. MMODL / IJN: [id number] /
--- NOTE | 2021-06-10 15:07 | P.DS ---
Providers Date of admission: 06/08/21 20:52 Expected date of discharge: 06/10/21 Attending physician: Aric Haney Consults: 06/08/21 20:44 Consult Physician Routine Consulting Provider: Tanvir Toribio Consult Reason/Comments: back wound Do you want consulting provider notified?: Yes Consult Physician Routine Consulting Provider: Selina Martin Consult Reason/Comments: back wound Do you want consulting provider notified?: Yes 06/09/21 09:18 Consult Physician Routine Consulting Provider: Tanvir Toribio Consult Reason/Comments: back infection near spine, long standing Do you want consulting provider notified?: Yes Primary care physician: [facility] Course: Final diagnoses Wound infection, possible lumbosacral spinal abscess, cellulitis. Cultures pending at [facility] office. History of lumbosacral spinal surgery Diabetes mellitus type 2 History of therapeutic radiation Hospital course:This is a pleasant 61-year-old white female. She has a history of lumbosacral surgery 2002. She then had breast cancer and underwent radiation and chemotherapy in 2018. She reports in March 2020 experiencing a blister/abscess to her lumbosacral back, midline, where she had the back surgery previously. Shes had drainage from the area. She has seen infectious disease about it. She has seen [facility] for several days about this and been on antibiotics with Cipro for sometime. It is not cleared up. She came in emergency room today at the behest of Dr. Martin after had seen the wound in the office and wanted an MRI and evaluation by spine orthopedics. Currently she has no complaints of chest pains, pressures, shortness breath, nausea vomiting. She would like to go home as soon as possible. Evaluated by both infectious disease and orthopedic surgery, maintained on antibiotics. MRI reporting rapid improvement per ID and orthopedic surgery evaluation. Patient will be discharged home today in a stable condition with guarded prognosis pending final DC recommendations and clearance from both orthopedic surgery and infectious disease. Close outpatient follow-up. Microbiology 06/08/21 20:45 Back Gram Stain - Preliminary 06/08/21 20:45 Back Wound Culture - Preliminary 06/08/21 20:45 Blood Blood Culture - Preliminary No Growth after 24 hours 06/08/21 20:54 Blood Blood Culture - Preliminary No Growth after 24 hours 06/08/21 00:12 Back Anaerobic Culture - Preliminary The impression and plan of care has been dictated as directed. : I performed a history and examination of this patient, discussed the same with the dictator. I agree with the dictator's note ,documented as a scribe. Any additional findings or plans will be noted. Patient Condition at Discharge: Stable Plan - Discharge Summary Discharge Rx Participant: No New Discharge Prescriptions: Continue metFORMIN HCL [Glucophage] 1,000 mg PO BID Multivitamins, Thera [Multivitamin (formulary)] 1 tab PO DAILY Levothyroxine Sodium [Synthroid] 100 mcg PO DAILY Aspirin EC [Ecotrin Low Dose] 81 mg PO HS Simvastatin [Zocor] 40 mg PO DAILY Spironolactone [Aldactone] 12.5 mg PO DAILY Pregabalin [Lyrica] 150 mg PO BID Furosemide [Lasix] 40 mg PO DAILY Carvedilol [Coreg] 6.25 mg PO BID Pyridoxine HCl (Vitamin B6) [Vitamin B-6] 100 mg PO HS glipiZIDE XL [Glucotrol XL] 2.5 mg PO BID Losartan Potassium [Cozaar] 25 mg PO DAILY Neratinib Maleate [Nerlynx] 240 mg PO DAILY Discharge Medication List Aspirin EC [Ecotrin Low Dose] 81 mg PO HS 08/06/15 [History] Levothyroxine Sodium [Synthroid] 100 mcg PO DAILY 08/06/15 [History] Multivitamins, Thera [Multivitamin (formulary)] 1 tab PO DAILY 08/06/15 [History] Simvastatin [Zocor] 40 mg PO DAILY 08/06/15 [History] metFORMIN HCL [Glucophage] 1,000 mg PO BID 08/06/15 [History] Carvedilol [Coreg] 6.25 mg PO BID 06/08/21 [History] Furosemide [Lasix] 40 mg PO DAILY 06/08/21 [History] Losartan Potassium [Cozaar] 25 mg PO DAILY 06/08/21 [History] Neratinib Maleate [Nerlynx] 240 mg PO DAILY 06/08/21 [History] Pregabalin [Lyrica] 150 mg PO BID 06/08/21 [History] Pyridoxine HCl (Vitamin B6) [Vitamin B-6] 100 mg PO HS 06/08/21 [History] Spironolactone [Aldactone] 12.5 mg PO DAILY 06/08/21 [History] glipiZIDE XL [Glucotrol XL] 2.5 mg PO BID 06/08/21 [History] Follow up Appointment(s)/Referral(s): Eloy Correa Jr, DO [Primary Care Provider] - 1-2 days
[2021-06-11] MEDS ORDERED: VANCOMYCIN TROUGH DUE 1 EACH MISC MISCELLANE ONE (11:00)
== END 2021-06-10 15:39 | disposition home or self-care (01) | DRG 863 ==
LOC: EC 16:46 → 4SSUR 20:52
PROVIDERS: ADMIT Family Medicine; ATTEND Family Medicine
DX: T81.49XA Infection following a procedure, other surgical site, initial encounter (principal); L03.312 Cellulitis of back [any part except buttock and flank]; L02.212 Cutaneous abscess of back [any part, except buttock and flank]; T81.89XA Other complications of procedures, not elsewhere classified, initial encounter; E11.9 Type 2 diabetes mellitus without complications; D64.9 Anemia, unspecified; E78.5 Hyperlipidemia, unspecified; Z20.822 Contact with and (suspected) exposure to COVID-19; I10 Essential (primary) hypertension; E07.9 Disorder of thyroid, unspecified; Z79.82 Long term (current) use of aspirin; Z79.84 Long term (current) use of oral hypoglycemic drugs; Z79.890 Hormone replacement therapy; Z79.899 Other long term (current) drug therapy; Z85.3 Personal history of malignant neoplasm of breast; Z92.21 Personal history of antineoplastic chemotherapy; Z98.1 Arthrodesis status; Z92.3 Personal history of irradiation; Z98.51 Tubal ligation status; Y84.8 Other medical procedures as the cause of abnormal reaction of the patient, or of later complication, without mention of misadventure at the time of the procedure
CPT/HCPCS: 36415; 72158; 80048; 83036; 83605; 83735; 84134; 85025; 85652; 86140; 87040; 87070; 87075; 87205; 87635; 99284

== ENCOUNTER → 2021-08-24 | Outpatient (CLI) | payer MEDICARE ==
--- NOTE | 2021-08-25 04:31 | MR ---
EXAMINATION TYPE: MR lumbar spine wo con DATE OF EXAM: 08/24/2021 COMPARISON: 06/09/2021 HISTORY: prior on synapse, low back pain , history of fusion 2002, history of breast CA 2018 Multiplanar multiecho imaging of the lumbar spine without contrast. Lumbar vertebrae have normal alignment. There is metal artifact from posterior fusion surgery from L4 to S1. There is apparent multilevel laminectomy defect. Detail limited by the metal artifact. Sacroi liac joints are intact. There is no lumbar paraspinal mass. There is no compression fracture. There i s mild disc space narrowing throughout the lumbar spine from L2 to S1. There is some facet arthropath y and posterior central disc bulging and herniation at L2-3 with a mild spinal stenosis. This appears unchanged. There is no evidence of focal bone destruction. There is slight elevation of the posterior longitudinal ligament posterior to the S1 vertebral body t hat could be old sequestered disc herniation. This appears slightly smaller than last exam. Spinal ca nal appears adequate at this level and no stenosis. No evidence of any significant neural foraminal s tenosis. IMPRESSION: Posterior fusion surgery. 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 No adverse change compared to old exam. There is some L2-3 mild spinal stenosis related to facet arthropathy and posterior disc bulging without ch praneeth compared to old exam.
== END | disposition home or self-care (01) ==
LOC: RADMRIMAIN 19:21
PROVIDERS: ATTEND Orthopaedic Surgery
DX: M48.061 Spinal stenosis, lumbar region without neurogenic claudication (principal); M47.816 Spondylosis without myelopathy or radiculopathy, lumbar region; M51.27 Other intervertebral disc displacement, lumbosacral region; Z98.1 Arthrodesis status
CPT/HCPCS: 72148

== ENCOUNTER → 2021-08-26 | Outpatient (CLI) | payer MEDICARE | END | disposition home or self-care (01) | LOC: LABPAT 09:08 | PROVIDERS: ATTEND Orthopaedic Surgery | DX: Z01.812 Encounter for preprocedural laboratory examination (principal); T84.63XA Infection and inflammatory reaction due to internal fixation device of spine, initial encounter; Y82.9 Unspecified medical devices associated with adverse incidents | CPT/HCPCS: 87070 ==

== ENCOUNTER 2021-09-04 10:20 | Inpatient (IN) | payer MEDICARE ==
--- NOTE | 2021-08-26 09:08 | P.HPOR ---
History of Present Illness H&P Date: 08/26/21 Chief Complaint: Back pain, draining wound, presumed infected hardware Date of :[birth year] [id number]: 61 year Height: 5'8" Weight: 246 lbs BP:125/78 BMI: 37.40 kg/m2 Occupation: Retired VAS: 0 CHIEF COMPLAINT: Low back pain HISTORY: Xrays No new xrays taken in office Trauma or injury No Work-Related No Pain description Sharp Location Posterior Activity Modification Yes , unable to stand or ambulate for extended periods of time secondary to pain. Hand Dominance Right DOI: Acute on chronic DOS: Lumbar surgery in 2002. TREATMENTS COMPLETED: 6 weeks of PT completed? No Physician directed home exercise completed? No Medications yes List: Ciprofloxacin since 03/2020 that has not reduced the abscess. Alternative interventions Chiropractic?: No Brace: No Injections No RFA: No SUBJECTIVE: Patient presents to the office today for an evaluation of her low back. Since the time of the last appointment the patient notes that she has completed her course of Ciprofloxacin as prescribed by Dr. Martin. With this the patient notes that she has seen no discernable changes to her symptoms. She does deny any progression regarding fevers or chills but is having increased drainage of the lumbar incisions. With this she notes that she has had a "pinhead" sized hole open up in the back with white, cloudy drainage. She notes no pain with this. She does report trying no new treatment modalities since the time of the last appointment, denying any PT or pain medications. Otherwise she denies any bladder or bowel issues, no perineal numbness/tingling, and ambulates without the use of any aides. HPI: Ms. Luong last presented to the office on 06/22/2021 for an evaluation of her low back. To review, the patient was referred her after finding an anterior presacral abscess and possible infected hardware in her lumbar spine that was implanted in 2002. 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 She has been to [facility] where they attempted to aspirate this collection unsuccessfully. She has been on ABx alf since then. She Does not complain of any significant pain or symptoms related to this or her back at this time. She was recently in the hospital as ID saw her in office and she had a small pustule around the incision that expressed purulent fluid. We evaluated her in the hospital and she was started on abx, IV. She was not septic and remains as such. We elected for conservative management as the MRI did not show any new fluids collections at the time and actually showed improvement of the presacral abscess. The patient is currently on Ciprofloxacin since 03/2020 for this. Her infection markers in the hospital were low. The only out of the normal was ESR which was slightly elevated but CRP and WBC were low. She is also on treatment for her BCA at this time in the form of a chemotherapy/hormone therapy which is supposed to be ending in Jul of this year. The patient denies any fever or chills associated with the abscess either. Today she notes that she is not in significant pain, but states that her low back pain does worsen with standing and ambulating for extended periods of time. Her back pain has waxed and waned over the years since the initial onset of her symptoms. Patient denies any other treatments aside from Cipro at this time. She denies any radiculopathic symptoms, bladder or bowel issues, or genital numbness/tingling. Additionally she presents to the office without the use of any ambulatory aides. The patients' past social, medical, family, surgical history, as well as review of systems, have been reviewed. Please refer to the Neurosurgery History and Physical form that has been scanned in to our electronic medical record system. 14 points review of systems completed and as stated in HPI, all other systems reviewed are negative. Review of Systems Constitutional: Reports as per HPI Past Medical History Past Medical History: Diabetes Mellitus, Hyperlipidemia, Hypertension, Musculoskeletal Disorder, Thyroid Disorder Additional Past Medical History / Comment(s): HX OF ANEMIA, BACK PAIN. History of Any Multi-Drug Resistant Organisms: MRSA Date of last positivie culture/infection: 07/17/21 MDRO Source:: BREAST Past Surgical History: Back Surgery, Orthopedic Surgery, Tubal Ligation Additional Past Surgical History / Comment(s): LEFT LEG SURG FOR FX X2 (1986), LEFT FUSED ANKLE, CARPAL TUNNEL. Past Anesthesia/Blood Transfusion Reactions: Postoperative Nausea & Vomiting (PONV) Past Psychological History: No Psychological Hx Reported Smoking Status: Never smoker Past Alcohol Use History: Rare Past Drug Use History: None Reported - Past Family History Father Family Medical History: Cancer Additional Family Medical History / Comment(s): ? PRE-LEUKEMIA Medications and Allergies Home Medications Medication Instructions Recorded Confirmed Type Aspirin EC [Ecotrin Low Dose] 81 mg PO HS 08/06/15 06/08/21 History Levothyroxine Sodium [Synthroid] 100 mcg PO DAILY 08/06/15 06/08/21 History Multivitamins, Thera [Multivitamin 1 tab PO DAILY 08/06/15 06/08/21 History (formulary)] Simvastatin [Zocor] 40 mg PO DAILY 08/06/15 06/08/21 History metFORMIN HCL [Glucophage] 1,000 mg PO BID 08/06/15 06/08/21 History Carvedilol [Coreg] 6.25 mg PO BID 06/08/21 06/08/21 History Furosemide [Lasix] 40 mg PO DAILY 06/08/21 06/08/21 History Losartan Potassium [Cozaar] 25 mg PO DAILY 06/08/21 06/08/21 History Neratinib Maleate [Nerlynx] 240 mg PO DAILY 06/08/21 06/08/21 History Pregabalin [Lyrica] 150 mg PO BID 06/08/21 06/08/21 History Pyridoxine HCl (Vitamin B6) 100 mg PO HS 06/08/21 06/08/21 History [Vitamin B-6] Spironolactone [Aldactone] 12.5 mg PO DAILY 06/08/21 06/08/21 History glipiZIDE XL [Glucotrol XL] 2.5 mg PO BID 06/08/21 06/08/21 History Allergies Allergy/AdvReac Type Severity Reaction Status Date / Time adhesive tape AdvReac Unknown Verified 06/08/21 17:57 Physical Examination Osteopathic Statement: *. No significant issues noted on an osteopathic structural exam other than those noted in the History and Physical/Consult. PHYSICAL EXAMINATION: General: Awake, alert, appropriate for age, in no acute distress. HEENT: No unusual neck masses around region of lateral neck triangle, thyroid, supraclavicular groove Heart: Regular rate and rhythm, normal S1, S2 and no murmur/gallop. Lungs: Clear to auscultation bilaterally with no use of accessory muscles. Extremities: Skin warm and dry without acute lesions, coloration, temperature, skin intact, no tenderness or erythema Integument: Hairy patches: Absent Dorsal skin dimples: Absent Cafe au lait spots: Absent Surgical incisions: Yes, Previous incision has opened up at the bottom with a small pinhole of drainage. Mild purulence. No EEE at this time. Palpation: Please see Pain drawing on Intake sheet for further detail. Midline spinal tenderness: No E6 Paralumbar tenderness: Minimal Parathoracic tenderness: No E6 Buttocks tenderness: No E6 Special findings: No POSTURAL and MUSCULO-SKELETAL EVALUATION: Coronal Balance: NEUTRAL Recumbent testing: Patient is able to lay flat on back Sagittal Balance: POS Shoulder Profile: LEVEL Pelvic Girdle: LEVEL Neck ROM: UNRESTRICTED Lumbar ROM: RESTRICTED Shoulder ROM: Symmetrical Hip ROM: Symmetrical Knee ROM: Symmetrical Hands: Normal appearance, symmetrical Feet: Normal appearance, Symmetrical VASCULAR STATUS : LEFT RIGHT Wrist Pulses INTACT INTACT Pedal Pulses (Dors. pedis & post.tibialis) INTACT INTACT Color NORMAL NORMAL Edema Absent Absent NEUROLOGIC EXAMINATION: Mental Status:Awake and alert, fully oriented, with normal attention, concentration and memory, and fluent, appropriate speech. Cranial Nerves: I: Olfactory not tested. II: Visual acuity normal, no visual field deficit noted with confrontation. III,IV: Normal pupillary reflexes & intact extraocular movements without nystagmus. V,: Intact symmetrical facial sensation. VII: Intact symmetrical facial motor movement VIII: Hearing intact. IX,X: Intact gag, swallow, & normal voice. XI: Sternocleidomastoid, trapezius function intact. XII: Tongue midline with normal movements. L'hermitte's Sign: Negative / absent Spurling'Sign: Absent bilaterally. Cubital percussion test: Absent bilaterally. Johanny-Tinel sign - Carpal region: Absent bilaterally. Straight Leg Raising: Absent bilaterally. Crossed straight leg raise: negative O8 MOTOR EXAM (0-5/5, N/T) STRENGTH RIGHT LEFT Shoulder Abd (not part of the FRANKO score) 5 5 Elbow Flexors 5 5 Elbow Extensor 5 5 Wrist Dorsiflexors 5 5 Finger Abductor 5 5 White Metal Caster 5 5 Hip Flexor (Not part of FRANKO Motor score) 5 5 Knee Flexor 5 5 Knee Extensor 5 5 Ankle dorsiflexor 5 5 Ankle plantarflexion 5 5 Extensor hallucis 5 5 Some generalized weakness of the LE b/l, but this is more due to her medical condition than any focal neurological deficits. REFLEXES(0-4/2, NT) RIGHT LEFT Upper Extremities 2 2 Lower Extremities 2 2 Pathological Reflexes RIGHT LEFT Ballard's Absent Absent Clonus Absent Absent Babinski Absent Absent # Indicates mechanical impairment Muscle appearance: Symmetrical, without signs of atrophy or dystrophy. Rectal Tone:Deferred Sensory system (0-4, N/T) Test type RU SUSAN RL LL Joint-Position 2 2 2 2 Vibration 2 2 2 2 Pain & LT sense 2 2 2 2 Dermatomal Deficit: None None None None Gait and Functional Evaluation: Ambulatory aids: Independent Romberg's test: Intact bilaterally Toe heel walk / heel-toe walk intact while maintaining satisfactory balance? yes Squatting/straightening w/o assistance to a min of 60 degree knee flexion? yes Single leg stance: intact Trendelenburg sign negative bilaterally Hand and finger dexterity intact bilaterally? yes Disdiadochokinesis examination negative bilaterally? yes Results Xrays, CT, MRIs were all reviewed again. These demonstrate multiple different areas of interest. The patient has post surgical changes of L4-S1 with hardware in position. She has pseudoarthrosis of L4-S1 likely and somewhat of L4-5 but not to the same extent. Screws have hollowing around them at L4 with no interbody at L4-5. There is no anterior fusion here. There is some anterior fusion noted at L4-5. 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 There is no fracture or dislocation noted at this time. 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 There is spondylosis of L5S1. Pre sacral area shows what appears to be abscess, which is internally improved over the course of MRI assessments. It is much improved from previous exams. There is also question of at L5-S1 epidural abscess. This seems to be contained, somewhat rim enhances on MRI but is solid centrally and contained beneath the PLL. There is no evidence of stenosis related to this, and it is difficult to say what this is or that it is abscess collection. It lacks the enhancement and the fluidity expected, however since this is such an old problem, it could be more phlegmon. Again it is contained anterior to thePLL b ut between the PLL and Annulus of L5-S1 and is exertion little to no pressure on the thecal sac. There is no evidence of osteomyelitis. There is no other areas of discitis noted. No other lesions fractures or dislocation noted. Most recent MRI is reviewed today this demonstrates continued fluid or phlegmon- type collection subfascially which shows tracked distally and then proximally and superficially which is likely where her drainage is coming from. There is still some anterior sacral fluid however this has greatly improved since her previous MRIs. She continues to have somewhat of a sequestered disc herniation L5-S1 which is sub-PLL. This has not changed significantly and maybe has gotten smaller even. There is likely pseudoarthrosis L4-L5 which is noted. There is reasonable fusion construct L5-S1. There is adjacent segment disease L3-L4. This is mild. No other fracture dislocation or lesions noted this time. Assessment and Plan Assessment: 1. S/P L4-S1 fusion 2. Likely infected hardware 3. BCA s/p chemo/rads 4. Large presacral fluid collection, improving Plan: Spine Surgery Risk Review Uzair Luong is a 61-year-old female presenting for evaluation of draining wound low back pain. It was my pleasure to have seen and examined Uzair Luong. In our visit today we have had a chance to go over subjective complaints, physical examination findings and treatments including the natural course history without intervention and various interventional options. The patients imaging demonstrates likely phlegmon surrounding the hardware with draining sinus tract presacral fluid collection improved epidural areas similar. On physical exam, Uzair Luong demonstrates draining sinus wound from the inferior portion of her incision with low back pain. I have explained to the patient that as their condition progresses it will cause further neurological deficits and eventual paralysis. Based on the patients imaging, physical exam, and the rapid progression and disabling nature of their symptoms, at this time I recommend surgery in the form or a: Incision and drainage with removal of hardware lumbar spine possible re-instrumentation. I di scussed the risk and benefits of this procedure at length with Uzair Luong. The patient agreed to considered pursuing the procedure abovementioned. Prior to surgery, she should follow up with her PCP (Cardio, ID, IM etc) for clearance. Questions were invited and answered, and the patient wishes to proceed as outlined below. Currently, I am recommendin. Incision and drainage with removal of hardware lumbar spine with possible re-instrumentation L4 to S1 2. Follow up with PCP for surgical clearance 3. Review of surgical risks and benefits as well as an educational packet on the proposed surgical procedure. Risks: All surgical procedures come with inherent risks, including those related to positioning, anesthesia, intraoperative findings, and postoperative complications. It is important to understand that surgery does not come with any guarantee of a successful outcome as complications and adverse events are always possible. The patient was given a handout in office today discussing the surgical procedure and risks associated with the intervention, both of which were discussed with the patient. These risks include but are not limited to the following: * Experiencing same, different or even worse symptoms in back, neck, arms, or legs compared to before surgery. * Requiring further surgery or other forms of treatment presently or at some time in the future at same or other levels of the intended spine surgery. * On an extreme but fortunately relatively rare basis severe complication such as blindness, stroke, heart attack, temporary and/or permanent nerve injury, paralysis, coma, or may occur, sometimes without known explanation. * Surgical complications may include but are not limited to risk of infection, fluid accumulation in the surgical dissection site, including a seroma or hematoma, that requires additional surgery, wound drainage, bleeding, new numbness or weakness, vision changes/loss, spinal fluid leakage, non-healing and/or infected incision, headaches, difficulty or inability to swallow, hoarseness, hemopneumothorax, pneumothorax, impotence, retrograde ejaculation, vaginal dryness; injury to nerves, spinal cord, blood vessels, lymphatics or other vital organs (i.e., bowel injury, injury to the great vessels); heterotopic bone formation; complications related to the hardware such as screws, rods, cages including misplaced hardware, device failure, instrumentation at the wrong spine level, hardware fracture/breakage, or hardware loosening; vertebral failure of the spinal column above or below the newly placed hardware; retained surgical instrumentations or devices and the need for further surgery. * Medical risks of the planned spine surgery include but are not limited to generalized Infections to the whole body or local areas outside of the surg ical site (sepsis), heart attack, bleeding, anaphylaxis, meningitis, seizure, epilepsy, hearing loss, burn cervantes, laceration of the head or other areas of the body, bruising, hypersensitivity of the skin, bladder over distension; allergic reaction; shoulder injury related to positioning; fat, blood and air clots to other areas of the body like heart, lungs, brain; failure of internal organs such as lungs, kidneys, liver and excessive bleeding. If blood transfusions are necessary, note that transfusions may cause intolerance reactions such as anaphylaxis or other complex reactions. * Despite best efforts, the results of spine surgery might not heal in terms of bone, soft tissues such as skin, fascia, ligaments, and joints. Additionally, in order to achieve best possible results, spine surgery may be carried out beyond the initially planned levels and involve decompression, fusion including insertion of hardware at levels other than the original intended area of surgical interest change some portions of the procedure in order to ensure the best possible outcomes. * With spine surgery and spinal fusion, there are different off label uses of instrumentation (devices, implants and hardware) as well as biological substances (bone morphogenic proteins, demineralized bone matrix) as well as using extra bone from allograft sources (i.e. cadaver bone) or autograft (iliac crest bone, ribs, or the spine itself). The patient has been given information about these practices and their inherent risks and benefits. The patient has had a chance to review all the listed information, has been given print outs detailing this information, and has had all his/her questions answered to their satisfaction. It was my pleasure to have seen and examined Uzair Luong. In our visit today we have had a chance to go over my understanding of our patient's current condition, the natural course history without intervention and various interventional options. Questions were invited and answered, and the patient wishes to proceed as outlined above. I have seen and examined the patient for 25 minutes and we have spent more than 50% of the time in repeat and detailed counseling about the patient's condition, its natural course history with out and as much as can be predicted with surgery and re-review of various surgical treatment options. In conclusion, Uzair Luong and requested we proceed with the above suggested surgery and are willing to accept risks and limitations of the suggested surgery as nature of the disease process and our best attempts at treatment for the condition. Thank you again for allowing us to be part of your patient's care. Please don't hesitate to contact me if you have any further questions. Signed and authenticated by: Tanvir Rudolph [facility] [address], [address] [address]
[2021-08-27 12:15] VITALS: BMI 37.7
[~2021-09-04 10:20] MED LIST: ACETAMINOPHEN TAB 500 MG TAB PO PRN; DEXAMETHASONE SOD PHOSPHATE 4 MG/ML 1 ML VIAL IV ONE; HYDROmorphone 0.5 MG/0.5 ML SYRINGE IVP PRN; ONDANSETRON 4 MG/2 ML VIAL IVP ONE; ONDANSETRON 4 MG/2 ML VIAL IVP PRN; TRANEXAMIC ACID 1,000 MG in SODIUM CHLORIDE 0.9% 100 ML IVPB PRN
[2021-09-04 11:32] LABS: Glucose,Whole Blood 142 mg/dL (75-99)
[2021-09-04] MEDS: LACTATED RINGERS 1,000 ML IV SCH (11:38)
[2021-09-04] MEDS ORDERED: KETAMINE 10 MG/ML 20 ML VIAL ONE (12:40)
[2021-09-04] MEDS ORDERED: PROPOFOL 10 MG/ML 20 ML VIAL IV ONE (12:40)
[2021-09-04] MEDS ORDERED: ROCURONIUM 10 MG/ML (5 ML VIAL) IV ONE (12:40)
[2021-09-04] MEDS ORDERED: GLYCOPYRROLATE 0.2 MG/ML 2 ML VIAL ONE (12:40)
[2021-09-04] MEDS ORDERED: fentaNYL (PF) 50 MCG/ML 2 ML AMP ONE (12:40)
[2021-09-04] MEDS ORDERED: ceFAZolin 1,000 MG VIAL ONE (12:40)
[2021-09-04] MEDS ORDERED: TRANEXAMIC ACID 1,000 MG/10 ML VIAL ONE (12:40)
[2021-09-04] MEDS ORDERED: NEOSTIGMINE 1 MG/ML 10 ML VIAL ONE (12:40)
[2021-09-04] MEDS ORDERED: SODIUM CHLORIDE 0.9% 100 ML BAG ONE ×2 (12:40)
[2021-09-04] MEDS ORDERED: SUCCINYLCHOLINE CHLORIDE 100 MG/5 ML SYR IV ONE (12:40)
[2021-09-04] MEDS ORDERED: MIDAZOLAM 2 MG/2 ML VIAL ONE (12:40)
[2021-09-04] MEDS ORDERED: PHENYLEPHRINE-0.9% NACL SYG 1,000 MCG/10 ML SYRINGE ONE (12:40)
[2021-09-04] MEDS ORDERED: LIDOCAINE 1% INJ 10MG/ML (20 ML MDV) ONE (12:40)
[2021-09-04] MEDS ORDERED: ALBUMIN HUMAN 5% (12.5gm) 250 ML BOTTLE IVPB ONE (12:40)
[2021-09-04] MEDS ORDERED: BUPIVACAINE (PF) 0.25% 30 ML VIAL SQ ONE (13:35)
[2021-09-04] MEDS ORDERED: GELATIN SPONGE,ABSORB (LARGE) 1 EACH SPONGE TOPICAL ONE (13:35)
[2021-09-04] MEDS ORDERED: THROMBIN (BOVINE) 5,000 UNIT VIAL TOPICAL ONE (13:35)
[2021-09-04] MEDS ORDERED: TOBRAMYCIN SULFATE 1.2 GM VIAL MISCELLANE ONE (13:35)
[2021-09-04] MEDS ORDERED: VANCOMYCIN 1,000 MG VIAL MISCELLANE ONE ×2 (13:35→17:46)
[2021-09-04] MEDS ORDERED: VANCOMYCIN IV PER PHARMACY 1 EACH MISC MISCELLANE PRN (13:42)
[2021-09-04] MEDS ORDERED: VANCOMYCIN 2,000 MG in SODIUM CHLORIDE 0.9% 500 ML 500 ML IVPB STA (13:45)
[2021-09-04] MEDS ORDERED: LACTATED RINGERS 1,000 ML IV ONE ×5 (14:39→20:04)
[2021-09-04] MEDS ORDERED: ceFAZolin 3,000 MG in SODIUM CHLORIDE 0.9% IRRIGATIO 3,000 ML IRRIGATION ONE (14:55)
[2021-09-04] MEDS ORDERED: CYCLOBENZAPRINE 5 MG TAB PO PRN (18:48)
[2021-09-04] MEDS ORDERED: HYDROmorphone 0.5 MG/0.5 ML SYRINGE IVP ONE (19:15)
[2021-09-04 19:17] LABS: Glucose,Whole Blood 217 mg/dL (75-99)
[2021-09-04] MEDS ORDERED: INSULIN ASPART (NovoLOG) 100 UNIT/ML VIAL SQ ONE (19:30)
[2021-09-04] MEDS ORDERED: MEPERIDINE 50 MG/ML SYRINGE IVP ONE ×2 (19:37)
--- NOTE | 2021-09-04 21:19 | XR ---
EXAMINATION TYPE: XR lumbar spine 2 or 3V DATE OF EXAM: 09/04/2021 COMPARISON: NONE HISTORY: Spine surgery TECHNIQUE: 5 views FINDINGS: 34 seconds of fluoroscopy time was recorded during the surgery. A series of images show pos terior fusion surgery of rods and screws at L4 and S1 vertebral levels. IMPRESSION: No complicating process seen. Posterior fusion surgery.
[2021-09-04] MEDS: GABAPENTIN 300 MG CAP PO SCH (21:27)
[2021-09-04] MEDS: HYDROmorphone 0.5 MG/0.5 ML SYRINGE IVP PRN (21:27)
[2021-09-04] MEDS: HYDROcodone/APAP 10-325MG 1 EACH TAB PO PRN (23:09)
[2021-09-04] MEDS: ACETAMINOPHEN TAB 325 MG TAB PO SCH (23:09)
[2021-09-05] MEDS: HYDROmorphone 0.5 MG/0.5 ML SYRINGE IVP PRN ×4 (02:07→20:31)
[2021-09-05] MEDS: VANCOMYCIN 2,000 MG in SODIUM CHLORIDE 0.9% 500 ML 500 ML IVPB SCH ×2 (02:08→13:28)
[2021-09-05] MEDS: ACETAMINOPHEN TAB 325 MG TAB PO SCH ×3 (05:22→17:26)
[2021-09-05] MEDS: LACTATED RINGERS 1,000 ML IV SCH (06:55)
[2021-09-05 07:01] LABS: Anisocytosis Slight; Basophils % (A) 0 %; Eosinophils % (A) 0 %; HCT 31.2 % (34.0-46.0); HGB 9.8 gm/dL (11.4-16.0); Hypochromasia Moderate; Lymphocytes # (A) 0.9 k/uL (1.0-4.8); Lymphocytes % (A) 15 %; MCH 29.6 pg (25.0-35.0); MCHC 31.4 g/dL (31.0-37.0); MCV 94.2 fL (80.0-100.0); Mean Platelet Volume 7.5; Monocytes # (A) 0.5 k/uL (0-1.0); Monocytes % (A) 8 %; Neutrophils # (A) 4.8 k/uL (1.3-7.7); Neutrophils % (A) 75 %; Platelet Count 252 k/uL (150-450); RBC 3.31 m/uL (3.80-5.40); RDW 16.8 % (11.5-15.5); WBC 6.4 k/uL (3.8-10.6)
--- NOTE | 2021-09-05 07:42 | FL ---
EXAMINATION TYPE: FL guidance operating room DATE OF EXAM: 09/04/2021 CLINICAL HISTORY: Low back pain TECHNIQUE: Fluoroscopy. COMPARISON: MRI lumbar spine August 24, 2021. FINDINGS: Fluoroscopic guidance was provided during PLDF procedure performed by Dr. Toribio. A t otal of 34 seconds of fluoroscopic time was utilized during the procedure and 4 spot images are acqui red. IMPRESSION: As Above.
[2021-09-05] MEDS: GABAPENTIN 300 MG CAP PO SCH ×2 (08:14→20:32)
--- NOTE | 2021-09-05 10:32 | P.PN ---
Subjective Progress Note Date: 09/05/21 Principal diagnosis: 1. S/P L4-S1 fusion 2. Likely infected hardware 3. BCA s/p chemo/rads 4. Large presacral fluid collection, improving Patient seen at bedside this mornign resting comfortably lying semirecumbent in bed. Patient says she got up with PT this morning and felt okay. Patient says she has not had bowel movemnt since surgery, but has been passing gas. Patient does mention she has some left sided lower back/flank pain, but it is tolerable. Patient denies chest pain, fever, SOB, N/V, change in vision, loss of bowel/bladder control. Objective - Vital Signs Vital signs: Vital Signs Temp 99.7 F H 09/05/21 04:56 Pulse 106 H 09/05/21 04:56 Resp 16 09/05/21 04:56 BP 103/66 09/05/21 04:56 Pulse Ox 94 L 09/05/21 04:56 Intake & Output 09/04/21 09/05/21 09/05/21 18:59 06:59 18:59 Intake Total 2551 450 Output Total 665 765 Balance 1886 -315 Weight 109.9 kg Intake: IV 2551 450 Output: Drainage 140 Lower Back 140 Urine 315 625 Estimated Blood Loss 350 - Exam Drain put out 140 ml serosanguineous fluid over past 12 hours. Incision clean, dry intact with andrei well aligned. Negative for any fluctance/purulence. Sensation is equal, symmetric, bilaterally intact throughout upper and lower extremities. Moderate TTP along lumbar spine incision. NTTP throguhout rest of exam. Good ROM in bilaterall upper and lower extremities. 4+/5 in all major motor groups. Neurovascular status intact. Cap refill < 3 sec bilaterally in digits of hands. Radial pulses 2+, intact bilaterally. Negative Homans bilaterally - Labs CBC & Chem 7: 09/05/21 06:07 Labs: Abnormal Lab Results - Last 24 Hours (Table) 09/04/21 09/04/21 09/05/21 Range/Units 11:28 19:15 06:07 RBC 3.31 L (3.80-5.40) m/uL Hgb 9.8 L (11.4-16.0) gm/dL Hct 31.2 L (34.0-46.0) % RDW 16.8 H (11.5-15.5) % Lymphocytes # 0.9 L (1.0-4.8) k/uL POC Glucose (mg/dL) 142 H 217 H (75-99) mg/dL Microbiology - Last 24 Hours (Table) 09/04/21 18:51 Gram Stain - Preliminary Back Wound Culture - Preliminary 09/04/21 18:50 Gram Stain - Preliminary Back Wound Culture - Preliminary 09/04/21 18:53 Gram Stain - Preliminary Back Wound Culture - Preliminary 09/04/21 18:52 Gram Stain - Preliminary Back Wound Culture - Preliminary 09/04/21 18:51 Gram Stain - Preliminary Back Tissue Culture - Preliminary 09/04/21 18:50 Gram Stain - Preliminary Back Tissue Culture - Preliminary 09/04/21 18:51 Anaerobic Culture - Preliminary Back 09/04/21 18:50 Anaerobic Culture - Preliminary Back 09/04/21 18:51 Anaerobic Culture - Preliminary Back 09/04/21 18:52 Anaerobic Culture - Preliminary Back 09/04/21 18:53 Anaerobic Culture - Preliminary Back 09/04/21 18:50 Anaerobic Culture - Preliminary Back Assessment and Plan Assessment: 1. S/P L4-S1 fusion 2. Likely infected hardware 3. BCA s/p chemo/rads 4. Large presacral fluid collection, improving Post op day 1 s/p Incision and drainage with removal of hardware lumbar spine with re-instrumentation L4 to S1 Plan: 1. S/P L4-S1 fusion; irritating hardware - surgery performed yesterday, 09/04/2021 - Incision and drainage with removal of hardware lumbar spine with re-instrumentation L4 to S1. Patient stable at bedside this morning. Awai ting cultures. Continue Vanco at this time. keep drain in at this time. Likely removal tomorrow vs Tuesday 2. Appreicate medical and ID management 3. Pain Management - [place]; Flexeril; Gabapentin 4. DVT ppx - mechanical 5. GI ppx - Sen[place] 6. PT/OT - WBAT w/walker 7. Discharge Planning - pending Time with Patient: Less than 30
[2021-09-05] MEDS: diphenhydrAMINE 50 MG/ML 1 ML VIAL IVP PRN (15:30)
[2021-09-05] MEDS: HYDROcodone/APAP 10-325MG 1 EACH TAB PO PRN (22:59)
[2021-09-06] MEDS: HYDROmorphone 0.5 MG/0.5 ML SYRINGE IVP PRN ×4 (00:23→16:09)
[2021-09-06] MEDS: ACETAMINOPHEN TAB 325 MG TAB PO SCH ×4 (00:23→18:20)
[2021-09-06] MEDS: diphenhydrAMINE 50 MG/ML 1 ML VIAL IVP PRN (02:39)
[2021-09-06] MEDS: VANCOMYCIN 2,000 MG in SODIUM CHLORIDE 0.9% 500 ML 500 ML IVPB SCH ×2 (02:40→12:57)
--- NOTE | 2021-09-06 09:19 | P.PN ---
Subjective Progress Note Date: 09/06/21 Principal diagnosis: 1. S/P L4-S1 fusion 2. Likely infected hardware 3. BCA s/p chemo/rads 4. Large presacral fluid collection, improving Patient seen at bedside this mornign resting comfortably sitting up in chair. Patient says she got up with PT this morning and felt okay. Patient says she has not had bowel movemnt since surgery, but has been passing gas. Patient denies chest pain, fever, SOB, N/V, change in vision, loss of bowel/bladder control. Objective - Vital Signs Vital signs: Vital Signs Temp 98.3 F 09/06/21 04:00 Pulse 96 09/06/21 04:00 Resp 16 09/06/21 04:00 BP 133/70 09/06/21 04:00 Pulse Ox 92 L 09/06/21 04:00 Intake & Output 09/05/21 09/06/21 09/06/21 18:59 06:59 18:59 Intake Total 720 Output Total 725 1000 Balance -5 -1000 Intake: Oral 720 Output: Drainage 100 100 Lower Back 100 100 Urine 625 900 Other: Voiding Method Indwelling Catheter # Voids 4 - Exam Drain put out 100 ml serosanguineous fluid over past 12 hours. Incision clean, dry intact with andrei well aligned. Negative for any fluctance/purulence. Sensation is equal, symmetric, bilaterally intact throughout upper and lower extremities. Moderate TTP along lumbar spine incision. NTTP throguhout rest of exam. Good ROM in bilaterall upper and lower extremities. 4+/5 in all major m otor groups. Neurovascular status intact. Cap refill < 3 sec bilaterally in digits of hands. Radial pulses 2+, intact bilaterally. Negative Homans bilaterally - Labs CBC & Chem 7: 09/05/21 06:07 Labs: Microbiology - Last 24 Hours (Table) 09/04/21 18:52 Gram Stain - Preliminary Back Wound Culture - Preliminary Gram Neg Bacilli 09/04/21 18:51 Gram Stain - Preliminary Back Wound Culture - Preliminary Gram Neg Bacilli 09/04/21 18:53 Gram Stain - Preliminary Back Wound Culture - Preliminary Gram Neg Bacilli 09/04/21 18:51 Gram Stain - Preliminary Back Tissue Culture - Preliminary Gram Neg Bacilli 09/04/21 18:50 Gram Stain - Preliminary Back Tissue Culture - Preliminary 09/04/21 18:50 Gram Stain - Preliminary Back Wound Culture - Preliminary Assessment and Plan Assessment: 1. S/P L4-S1 fusion 2. Likely infected hardware 3. BCA s/p chemo/rads 4. Large presacral fluid collection, improving Post op day 2 s/p Incision and drainage with removal of hardware lumbar spine with re-instrumentation L4 to S1 Plan: 1. S/P L4-S1 fusion; irritating hardware - surgery performed 09/04/2021 - Incision and drainage with removal of hardware lumbar spine with re-instrumentation L4 to S1. Patient stable at bedside this morning. Awaiting final cultures. Continue Vanco at this time. keep drain in at this time. Likely removal tomorrow 2. Appreicate medical and ID management 3. Pain Management - [place]; Flexeril; Gabapentin 4. DVT ppx - mechanical 5. GI ppx - Senna 6. PT/OT - WBAT w/walker 7. Discharge Planning - pending Time with Patient: Less than 30
[2021-09-06] MEDS: GABAPENTIN 300 MG CAP PO SCH ×2 (09:32→19:44)
[2021-09-06] MEDS: SENNOSIDES-DOCUSATE SODIUM 1 EACH TAB PO PRN (09:35)
--- NOTE | 2021-09-06 11:49 | P.CONS ---
History of Present Illness - Reason for Consult Consult date: 09/05/21 infected lumar hardware Requesting physician: Tanvir Toribio - Chief Complaint backpain and draiange from lumbar spine x weeks - History of Present Illness History of present illness : Patient is a 61-year-old female with past medical history significant for chronic low back pain in this patient who did have history of lumbar spine fusion surgery back in 2002 patient seems to have a problem with drainage from incision patient did have local culture positive for MRSA and Pseudomonas patient was subsequently evaluated at [facility] for possible removal of infected hardware and drainage of the abscess apparently patient did have a WBC scan which apparently was negative and she was told no surgery patient has been on a suppressive oral Cipro for more than a year and did have an admission to this facility in May for concern for possible worsening infection at that point but did have an MRI done which did show surrounding prominent she was continued on suppressive oral antibiotic therapy which was discontinued after about a year and we will consult for the side effects patient afterward did have an area of drainage which was cultured and d id grew Staphylococcus intermedius with resistant pattern she was treated with oral Zyvox seems to have a clinical improvement with no wound healed as the patient was having significant GI side effects she did stop taking the oral Zyvox after 2 weeks of therapy few days later the patient started having drainage from the area again for the patient was reevaluated by patient was electively admitted to the hospital yesterday for removal of the infected hardware and deep cultures patient was empirically started on vancomycin infectious disease was consulted for further management of antibiotic therapy, patient is currently complaining of pain into the lower back incision area more of a dull aching 3-4 "and is controlled with the pain medication patient denies any weakness in the legs no chest pain shortness of breath or cough no abdominal pain no diarrhea Review of system: CONSTITUTIONAL: Positive for weakness denies high-grade fever. EYES: No complaint. ENT: No complaint. RESPIRATORY: No complaint. CARDIOVASCULAR: No complaint. GENITOURINARY: No complaint. GASTROINTESTINAL: No complaint. MUSCULOSKELETAL: As per history of present illness. INTEGUMENTARY: No complaint. PSYCHOLOGIC: No complaint. ENDOCRINE: No complaint. NEUROLOGIC: No complaint. Past medical history : Reviewed, documented below Past surgical history : Reviewed, documented below Social history: Reviewed, documented below Medications: Reviewed, as documented below EXAMINATION: Vital sigans= Reviewed and documented below GENERAL DESCRIPTION: Middle-aged female lying in bed, no distress. No tachypnea or accessory muscle of respiration use. HEENT: Shows Pallor , no scleral icterus. Oral mucous membrane is dry. NECK: Trachea central, no thyromegaly. LUNGS: Unlabored breathing. Clear to auscultation anteriorly. No wheeze or crackle. HEART: S1, S2, regular rate and rhythm. ABDOMEN: Soft, no tenderness , guarding or rigidity EXTREMITIES: No edema of feet. SKIN: No rash, no masses palpable. NEUROLOGICAL: The patient is awake, alert, oriented x3, mood and affect normal. LABS AND RADIOLOGY: Reviewed results see below Assessment : Patient presenting to the hospital with infected hardware to the lumbosacral spine s/p removal of the hardware and drainage of the abscess culture has been obtained operative report is currently pending to see the extent of the infection will need to cover for the gram-positive skin emmett as well as culture positive for Staph epidermidis oxacillin resistant Plan: 1-vancomycin pharmacy to dose with a target trough of 15 while watching kidney function and Vanco trough closely. 2-treated with PICC line and outpatient antibiotic therapy before transition to oral antibiotics We will follow on clinical condition and cultures to further adjust medication if needed Thank you for this consultation we will follow the patient along with you Past Medical History Past Medical History: Cancer, Diabetes Mellitus, Hyperlipidemia, Hypertension, Musculoskeletal Disorder, Thyroid Disorder Additional Past Medical History / Comment(s): HX OF ANEMIA, BACK PAIN. cancer left breast 04/04/19 received chemo and radiation last radiation 12/03/19, last chemo 2019, port rt upper chest. yeast infection x 1 year. pt states has scratches on her legs d/t kitten History of Any Multi-Drug Resistant Organisms: MRSA Year Discovered:: 07/17/21 MDRO Source:: BREAST Past Surgical History: Back Surgery, Orthopedic Surgery, Tubal Ligation Additional Past Surgical History / Comment(s): LEFT LEG SURG FOR FX X2 (1986), LEFT FUSED ANKLE, CARPAL TUNNEL. lt breast lumpectomy with 3 lymph nodes removed. port on rt upper chest Past Anesthesia/Blood Transfusion Reactions: Postoperative Nausea & Vomiting (PONV) Additional Past Anesthesia/Blood Transfusion Reaction / Comm: previous blood transfusion without reaction Past Psychological History: No Psychological Hx Reported Smoking Status: Never smoker Past Alcohol Use History: Rare Past Drug Use History: None Reported - Past Family History Mother Family Medical History: Congestive Heart Failure (CHF) Father Family Medical History: Cancer Additional Family Medical History / Comment(s): ? PRE-LEUKEMIA Medications and Allergies Home Medications Medication Instructions Recorded Confirmed Type Aspirin EC [Ecotrin Low Dose] 81 mg PO HS 08/06/15 09/04/21 History Levothyroxine Sodium [Synthroid] 100 mcg PO DAILY 08/06/15 09/04/21 History Multivitamins, Thera [Multivitamin 1 tab PO DAILY 08/06/15 09/04/21 History (formulary)] Simvastatin [Zocor] 40 mg PO DAILY 08/06/15 09/04/21 History metFORMIN HCL [Glucophage] 1,000 mg PO BID 08/06/15 09/04/21 History Carvedilol [Coreg] 6.25 mg PO BID 06/08/21 09/04/21 History Furosemide [Lasix] 40 mg PO DAILY 06/08/21 09/04/21 History Losartan Potassium [Cozaar] 25 mg PO DAILY 06/08/21 09/04/21 History Pregabalin [Lyrica] 150 mg PO BID 06/08/21 09/04/21 History Spironolactone [Aldactone] 12.5 mg PO DAILY 06/08/21 09/04/21 History glipiZIDE XL [Glucotrol XL] 2.5 mg PO BID 06/08/21 09/04/21 History Empagliflozin [Jardiance] 10 mg PO DAILY 08/27/21 09/04/21 History Pyridoxine HCl (Vitamin B6) 100 mg PO DAILY 08/27/21 09/04/21 History [Vitamin B-6] Allergies Allergy/AdvReac Type Severity Reaction Status Date / Time adhesive tape AdvReac Unknown Verified 09/04/21 10:49 Physical Exam Vitals: Vital Signs Temp Pulse Pulse Resp BP Pulse Ox 09/05/21 12:48 98.7 F 89 16 126/75 94 L 09/05/21 04:56 99.7 F H 106 H 16 103/66 94 L 09/04/21 20:48 98.0 F 99 16 153/84 96 09/04/21 20:30 97.7 F 77 16 146/74 100 09/04/21 20:15 79 16 144/70 100 09/04/21 20:00 77 16 146/70 100 09/04/21 19:45 88 16 142/69 94 L 09/04/21 19:30 90 16 160/77 100 09/04/21 19:15 88 16 152/74 100 09/04/21 19:00 98.7 F 91 15 142/88 100 Intake and Output 09/05/21 09/05/21 09/05/21 06:59 14:59 22:59 Output Total 765 Balance -765 Output: Drainage 140 Lower Back 140 Urine 625 Results CBC & Chem 7: 09/05/21 06:07 Labs: Abnormal Lab Results - Last 24 Hours (Table) 09/04/21 09/05/21 Range/Units 19:15 06:07 RBC 3.31 L (3.80-5.40) m/uL Hgb 9.8 L (11.4-16.0) gm/dL Hct 31.2 L (34.0-46.0) % RDW 16.8 H (11.5-15.5) % Lymphocytes # 0.9 L (1.0-4.8) k/uL POC Glucose (mg/dL) 217 H (75-99) mg/dL Microbiology - Last 24 Hours (Table) 09/04/21 18:51 Gram Stain - Preliminary Back Wound Culture - Preliminary 09/04/21 18:50 Gram Stain - Preliminary Back Wound Culture - Preliminary 09/04/21 18:53 Gram Stain - Preliminary Back Wound Culture - Preliminary 09/04/21 18:52 Gram Stain - Preliminary Back Wound Culture - Preliminary 09/04/21 18:51 Gram Stain - Preliminary Back Tissue Culture - Preliminary 09/04/21 18:50 Gram Stain - Preliminary Back Tissue Culture - Preliminary 09/04/21 18:51 Anaerobic Culture - Preliminary Back 09/04/21 18:50 Anaerobic Culture - Preliminary Back 09/04/21 18:51 Anaerobic Culture - Preliminary Back 09/04/21 18:52 Anaerobic Culture - Preliminary Back 09/04/21 18:53 Anaerobic Culture - Preliminary Back 09/04/21 18:50 Anaerobic Culture - Preliminary Back
[2021-09-06] MEDS: LACTATED RINGERS 1,000 ML IV SCH (12:49)
[2021-09-06] MEDS: HYDROcodone/APAP 10-325MG 1 EACH TAB PO PRN ×2 (12:50→19:44)
[2021-09-06] MEDS: polyethylene glycoL 3350 17 GM POWD.PACK PO SCH (12:56)
[2021-09-06 13:04] LABS: African American GFR (CKD) >90 (>60 ml/min/1.73 sqM); Non-African American GFR(CKD) >90 (>60 ml/min/1.73 sqM)
--- NOTE | 2021-09-06 13:06 | P.CONS ---
History of Present Illness - Reason for Consult Medical management of hypertension hypothyroid is - History of Present Illness Uzair is a 61-year-old white female well-known to me and my practice. She has been having history of ongoing low back pain with a bulge at her lumbar area. This is found to be an anterior presacral abscess possibly infected hardware. She had lumbosacral surgery with Dr. Patel in 2002. She is been dealing with issues of the back since 2011. She been on long-term antibiotics Dr. Martin for concern infected hardware. She reports that it got quite a bit worse after chemotherapy for breast cancer in 2019. She is status post L4 S1 fusion with infected hardware removal and cleaning. And drainage of her large presacral fluid collection. Cultures show gram-negative bacilli Currently she complains of some mild back pain. She denies any chest pains, pressures, shortness of breath. She is complaining of some constipation. Review of Systems All systems: negative Past Medical History Past Medical History: Cancer, Diabetes Mellitus, Hyperlipidemia, Hypertension, Musculoskeletal Disorder, Thyroid Disorder Additional Past Medical History / Comment(s): HX OF ANEMIA, BACK PAIN. cancer left breast 04/04/19 received chemo and radiation last radiation 12/03/19, last chemo 2019, port rt upper chest. yeast infection x 1 year. pt states has scratches on her legs d/t kitten History of Any Multi-Drug Resistant Organisms: MRSA Year Discovered:: 07/17/21 MDRO Source:: BREAST Past Surgical History: Back Surgery, Orthopedic Surgery, Tubal Ligation Additional Past Surgical History / Comment(s): LEFT LEG SURG FOR FX X2 (1986), LEFT FUSED ANKLE, CARPAL TUNNEL. lt breast lumpectomy with 3 lymph nodes removed. port on rt upper chest Past Anesthesia/Blood Transfusion Reactions: Postoperative Nausea & Vomiting (PONV) Additional Past Anesthesia/Blood Transfusion Reaction / Comm: previous blood transfusion without reaction Past Psychological History: No Psychological Hx Reported Smoking Status: Never smoker Past Alcohol Use History: Rare Past Drug Use History: None Reported - Past Family History Mother Family Medical History: Congestive Heart Failure (CHF) Father Family Medical History: Cancer Additional Family Medical History / Comment(s): ? PRE-LEUKEMIA Medications and Allergies Home Medications Medication Instructions Recorded Confirmed Type Aspirin EC [Ecotrin Low Dose] 81 mg PO HS 08/06/15 09/04/21 History Levothyroxine Sodium [Synthroid] 100 mcg PO DAILY 08/06/15 09/04/21 History Multivitamins, Thera [Multivitamin 1 tab PO DAILY 08/06/15 09/04/21 History (formulary)] Simvastatin [Zocor] 40 mg PO DAILY 08/06/15 09/04/21 History metFORMIN HCL [Glucophage] 1,000 mg PO BID 08/06/15 09/04/21 History Carvedilol [Coreg] 6.25 mg PO BID 06/08/21 09/04/21 History Furosemide [Lasix] 40 mg PO DAILY 06/08/21 09/04/21 History Losartan Potassium [Cozaar] 25 mg PO DAILY 06/08/21 09/04/21 History Pregabalin [Lyrica] 150 mg PO BID 06/08/21 09/04/21 History Spironolactone [Aldactone] 12.5 mg PO DAILY 06/08/21 09/04/21 History glipiZIDE XL [Glucotrol XL] 2.5 mg PO BID 06/08/21 09/04/21 History Empagliflozin [Jardiance] 10 mg PO DAILY 08/27/21 09/04/21 History Pyridoxine HCl (Vitamin B6) 100 mg PO DAILY 08/27/21 09/04/21 History [Vitamin B-6] Allergies Allergy/AdvReac Type Severity Reaction Status Date / Time adhesive tape AdvReac Unknown Verified 09/04/21 10:49 Physical Exam Vitals: Vital Signs Temp Pulse Resp BP Pulse Ox 09/06/21 04:00 98.3 F 96 16 133/70 92 L 09/05/21 20:00 98.9 F 103 H 16 123/71 95 Intake and Output 09/05/21 09/06/21 09/06/21 22:59 06:59 14:59 Intake Total 720 Output Total 725 1000 Balance -5 -1000 Intake: Oral 720 Output: Drainage 100 100 Lower Back 100 100 Urine 625 900 Other: Voiding Method Indwelling Catheter # Voids 4 GENERAL: Fatigue, well-nourished and in minimal acute distress due to her back pain. HEAD: Atraumatic, normocephalic. EYES: Pupils equal round and reactive to light, extraocular movements intact, sclera anicteric, conjunctiva are normal. ENT:nares patent, oropharynx clear without exudates. Moist mucous membranes. NECK: Normal range of motion, supple without lymphadenopathy or JVD, no thyromegaly LUNGS: Breath sounds clear to auscultation bilaterally and equal. No wheezes rales or rhonchi. HEART: Regular rate and rhythm without murmurs, rubs or gallops.S1S2 Normal ABDOMEN: Soft, nontender, normoactive bowel sounds. No guarding, no rebound. No masses appreciated. There is a drain in the right lower abdomen is intact. EXTREMITIES: Normal range of motion, no pitting or edema. No clubbing or cyanosis. NEUROLOGICAL: Cranial nerves II through XII grossly intact. Normal speech, gait testing deferred PSYCH: Normal mood, normal affect. SKIN: S things on her spine are clean dry and intact. Results CBC & Chem 7: 09/05/21 06:07 Labs: Microbiology - Last 24 Hours (Table) 09/04/21 18:52 Gram Stain - Preliminary Back Wound Culture - Preliminary Gram Neg Bacilli 09/04/21 18:51 Gram Stain - Preliminary Back Wound Culture - Preliminary Gram Neg Bacilli 09/04/21 18:53 Gram Stain - Preliminary Back Wound Culture - Preliminary Gram Neg Bacilli 09/04/21 18:51 Gram Stain - Preliminary Back Tissue Culture - Preliminary Gram Neg Bacilli 09/04/21 18:50 Gram Stain - Preliminary Back Tissue Culture - Preliminary 09/04/21 18:50 Gram Stain - Preliminary Back Wound Culture - Preliminary Assessment and Plan (1) Status post lumbar spine surgery for decompression of spinal cord Current Visit: Yes Status: Acute Code(s): Z98.890 - OTHER SPECIFIED POSTPROCEDURAL STATES SNOMED Code(s): 519600633 (2) Essential (primary) hypertension Current Visit: Yes Status: Acute Code(s): I10 - ESSENTIAL (PRIMARY) HYPERTENSION SNOMED Code(s): 02248346 (3) Mixed hyperlipidemia Current Visit: Yes Status: Acute Code(s): E78.2 - MIXED HYPERLIPIDEMIA SNOMED Code(s): 175948368 (4) Acquired hypothyroidism Current Visit: Yes Status: Acute Code(s): E03.9 - HYPOTHYROIDISM, UNSPECIFIED SNOMED Code(s): 846026383 (5) H/O lumbosacral spine surgery Current Visit: No Status: Acute Code(s): Z98.890 - OTHER SPECIFIED POSTPROCEDURAL STATES SNOMED Code(s): 217377303 (6) H/O therapeutic radiation Current Visit: No Status: Acute Code(s): Z92.3 - PERSONAL HISTORY OF IRRADIATION SNOMED Code(s): 163674677 (7) Type 2 diabetes mellitus without complications Current Visit: No Status: Acute Code(s): E11.9 - TYPE 2 DIABETES MELLITUS WITHOUT COMPLICATIONS SNOMED Code(s): 208855729 (8) Wound infection Current Visit: No Status: Acute Code(s): T14.8XXA - OTHER INJURY OF UNSPECIFIED BODY REGION, INITIAL ENCOUNTER; L08.9 - LOCAL INFECTION OF THE SKIN AND SUBCUTANEOUS TISSUE, UNSP SNOMED Code(s): 76292262 (9) Wound of back Current Visit: No Status: Acute Code(s): S21.209A - UNSP OPN WND UNSP BK WL OF THORAX W/O PENET THOR CAV, INIT SNOMED Code(s): 207967617 Plan: We'll review her medications, reorder home medications as needed. repeat labs in a.m., She'll be reevaluated in the next 24 hours. Thank you very much for this consultation.
[2021-09-06] MEDS: metFORMIN 500 MG TAB PO SCH ×2 (15:31→16:56)
[2021-09-06 15:32] LABS: Glucose,Whole Blood 273 mg/dL (75-99)
[2021-09-06] MEDS: FUROSEMIDE 40 MG TAB PO SCH (15:32)
[2021-09-06] MEDS: LOSARTAN 25 MG TAB PO SCH (15:32)
[2021-09-06] MEDS: LEVOTHYROXINE 100 MCG TAB PO SCH (15:32)
[2021-09-06] MEDS: carvediloL 6.25 MG TAB PO SCH ×2 (15:32→15:34)
[2021-09-06] MEDS: CEFEPIME 2 GM in SODIUM CHLORIDE 0.9% 100 ML IVPB SCH (15:32)
[2021-09-06] MEDS: MULTIVITAMINS, THERA 1 EACH TAB PO SCH (15:32)
[2021-09-06] MEDS: Empagliflozin [Jardiance] PO SCH (15:32)
[2021-09-06 18:06] LABS: Glucose,Whole Blood 225 mg/dL (75-99)
[2021-09-06] MEDS: INSULIN ASPART (NovoLOG) 100 UNIT/ML VIAL SQ SCH ×2 (18:20→22:23)
[2021-09-06 20:44] LABS: Glucose,Whole Blood 266 mg/dL (75-99)
[2021-09-07] MEDS: CEFEPIME 2 GM in SODIUM CHLORIDE 0.9% 100 ML IVPB SCH ×3 (00:10→16:10)
[2021-09-07] MEDS: ACETAMINOPHEN TAB 325 MG TAB PO SCH ×4 (00:20→17:50)
[2021-09-07] MEDS: HYDROmorphone 0.5 MG/0.5 ML SYRINGE IVP PRN ×2 (04:17→16:10)
[2021-09-07] MEDS: LEVOTHYROXINE 100 MCG TAB PO SCH (05:26)
--- NOTE | 2021-09-07 05:57 | PN ---
PROGRESS NOTE DATE OF SERVICE: 09/06/2021. REASON FOR FOLLOWUP: Infected lumbar hardware, gram-negative. INTERVAL HISTORY: Patient is afebrile. The patient is currently breathing comfortably. The patient's pain to the lumbosacral spine has slightly decreased. The patient denies having any chest pain, shortness of breath or cough. No abdominal pain. No diarrhea. PHYSICAL EXAMINATION: Her blood pressure 116/69 with pulse of 80, temperature 98.9. She is 99% on room air. General description is a middle-aged female lying in bed in no distress. Respiratory system: Unlabored breathing, clear to auscultation anteriorly. Heart S1, S2. Regular rate and rhythm. Abdomen soft, no tenderness. LABS: Wound culture has been finalized with Pseudomonas aeruginosa. DIAGNOSTIC IMPRESSION AND PLAN: Patient with Pseudomonas secondary to infected lumbar hardware status post removal of the hardware. The patient cefepime was adjusted to 2 grams q.8 hours. She will need a PICC line for outpatient antibiotic with no gram positive. Vancomycin to be discontinued. Continue supportive care. MMODL / IJN: [id number] /
[2021-09-07 06:44] LABS: Anisocytosis Slight; Basophils % (A) 0 %; Eosinophils # (A) 0.1 k/uL (0-0.7); Eosinophils % (A) 2 %; HCT 29.6 % (34.0-46.0); HGB 9.1 gm/dL (11.4-16.0); Hypochromasia Marked; Lymphocytes # (A) 0.8 k/uL (1.0-4.8); Lymphocytes % (A) 14 %; MCH 29.5 pg (25.0-35.0); MCHC 30.8 g/dL (31.0-37.0); MCV 95.7 fL (80.0-100.0); Mean Platelet Volume 7.4; Monocytes # (A) 0.4 k/uL (0-1.0); Monocytes % (A) 7 %; Neutrophils # (A) 4.1 k/uL (1.3-7.7); Neutrophils % (A) 73 %; Platelet Count 186 k/uL (150-450); RDW 16.7 % (11.5-15.5); WBC 5.6 k/uL (3.8-10.6)
[2021-09-07 07:00] LABS: African American GFR (CKD) >90 (>60 ml/min/1.73 sqM); Anion Gap 6 mmol/L; Blood Urea Nitrogen 10 mg/dL (7-17); Calcium 8.9 mg/dL (8.4-10.2); Carbon Dioxide 26 mmol/L (22-30); Chloride 103 mmol/L (98-107); Glucose 205 mg/dL (74-99); Magnesium 1.6 mg/dL (1.6-2.3); Non-African American GFR(CKD) >90 (>60 ml/min/1.73 sqM); Potassium 3.5 mmol/L (3.5-5.1); Sodium 135 mmol/L (137-145)
[2021-09-07 07:03] LABS: Glucose,Whole Blood 190 mg/dL (75-99)
--- NOTE | 2021-09-07 08:36 | P.PN ---
Subjective Progress Note Date: 09/07/21 Principal diagnosis: infected hardware Pt s/e doing well this AM. She is sitting up in her chair eating breakfast. She was up yesterday and is planning on getting up today. Alas still in place, will DC today. She has some pain but is doing OK otherwise. Objective - Vital Signs Vital signs: Vital Signs Temp 98.5 F 09/07/21 04:40 Pulse 88 09/07/21 04:40 Resp 16 09/07/21 04:40 BP 116/68 09/07/21 04:40 Pulse Ox 98 09/07/21 04:40 Intake & Output 09/06/21 09/07/21 09/07/21 18:59 06:59 18:59 Intake Total 1480 880 Output Total 1020 810 475 Balance 460 70 -475 Intake: Intake, IV Titration 760 100 Amount Cefepime 2 gm In Sodium 100 100 Chloride 0.9% 100 ml @ 25 mls/hr IVPB Q8HR [facility] Rx# :[id number] Lactated Ringers 1,000 ml 160 @ 0 mls/hr IV [facility] Rx#:[id number] Vancomycin 2,000 mg In 500 Sodium Chloride 0.9% 500 ml 500 ml @ 167 mls/hr IVPB Q12H [facility] Rx#: [id number] Oral 720 780 Output: Drainage 120 60 Lower Back 120 60 Urine 900 750 475 Other: Voiding Method Indwelling Catheter Indwelling Catheter # Voids 4 - Exam Patient is alert and oriented 3 appears well-nourished well-hydrated is in no acute distress. They does not appear septic. Some mild ttp around incision site. There is no edema or ballottement sign. Lower extremities with 4+ out of 5 strength in all major muscle groups simply due to deconditioned post surgicla state, no focal deficits. Upper extremities show 5/5 strength in all major muscle groups. There is FROM that is painless of the b/l UE and LE in all major joints. They are intact to light touch sensation in L2 to S1 nerve distribution as well as C5-T1 Patient has palpable dorsalis pedis was posterior tibial pulses. Compartments are soft and compressible. Patient shows a negative Homans, Ballard's, negative Babinski's negative clonus bilaterally. negative straight leg raise bilaterally. No tensioning signs. Cranial nerves II through XII are grossly intact. Overall alignment is well-maintained in the sagittal coronal planes. Drain has 20 cc in this AM, was just emptied. Dressings are CDI at this time. - Constitutional General appearance: Present: obese - EENT Eyes: Present: PERRLA - Labs CBC & Chem 7: 09/07/21 06:17 09/07/21 06:17 Labs: Abnormal Lab Results - Last 24 Hours (Table) 09/06/21 09/06/21 09/06/21 Range/Units 12:30 15:30 18:04 RBC (3.80-5.40) m/uL Hgb (11.4-16.0) gm/dL Hct (34.0-46.0) % MCHC (31.0-37.0) g/dL RDW (11.5-15.5) % Lymphocytes # (1.0-4.8) k/uL Sodium (137-145) mmol/L Glucose (74-99) mg/dL POC Glucose (mg/dL) 273 H 225 H (75-99) mg/dL Hemoglobin A1c 7.0 H (4.0-6.0) % 09/06/21 09/07/21 09/07/21 Range/Units 20:42 06:17 06:17 RBC 3.10 L (3.80-5.40) m/uL Hgb 9.1 L (11.4-16.0) gm/dL Hct 29.6 L (34.0-46.0) % MCHC 30.8 L (31.0-37.0) g/dL RDW 16.7 H (11.5-15.5) % Lymphocytes # 0.8 L (1.0-4.8) k/uL Sodium 135 L (137-145) mmol/L Glucose 205 H (74-99) mg/dL POC Glucose (mg/dL) 266 H (75-99) mg/dL Hemoglobin A1c (4.0-6.0) % 09/07/21 Range/Units 07:01 RBC (3.80-5.40) m/uL Hgb (11.4-16.0) gm/dL Hct (34.0-46.0) % MCHC (31.0-37.0) g/dL RDW (11.5-15.5) % Lymphocytes # (1.0-4.8) k/uL Sodium (137-145) mmol/L Glucose (74-99) mg/dL POC Glucose (mg/dL) 190 H (75-99) mg/dL Hemoglobin A1c (4.0-6.0) % Microbiology - Last 24 Hours (Table) 09/04/21 18:52 Gram Stain - Final Back Wound Culture - Final Pseudomonas aeruginosa 09/04/21 18:51 Gram Stain - Final Back Tissue Culture - Final Pseudomonas aeruginosa 09/04/21 18:53 Gram Stain - Final Back Wound Culture - Final Pseudomonas aeruginosa 09/04/21 18:51 Gram Stain - Final Back Wound Culture - Final Pseudomonas aeruginosa 09/04/21 18:50 Gram Stain - Preliminary Back Tissue Culture - Preliminary 09/04/21 18:50 Gram Stain - Final Back Wound Culture - Final 09/04/21 18:50 Anaerobic Culture - Preliminary Back 09/04/21 18:52 Anaerobic Culture - Preliminary Back 09/04/21 18:53 Anaerobic Culture - Preliminary Back 09/04/21 18:51 Anaerobic Culture - Preliminary Back 09/04/21 18:50 Anaerobic Culture - Preliminary Back Assessment and Plan Assessment: POD3 Hardware removal, revision fusion L4-S1 with excisional debridment -Pseudomonas infected hardware 1. S/P L4-S1 fusion 2. Likely infected hardware 3. BCA s/p chemo/rads 4. Large presacral fluid collection, improving Plan: -Appreciate human resources consultant and team management. -Activity: Ambulate QID, OOB all meals, up and about, limit lifting bending twisting to less than 5 lbs. Use walker or cane if needed for stability. -Daily PT/OT, increase ambulation strength and balance. -Obtain LSO brace for comfort -Pain control: Adequate at this time -Meds: reviewed -GI ppx: senna, Miralax -DC alas today -DVT PPX: OK to restart Heparin tonight -Hygiene: Shower today. Maintain dressing clean and dry. Meticulous cleaning after BMs away from incision site -Drains: Maintain for now. Record output -Encourage IS 10x/hr -Appreciate ID recs for abx due to Pseudomonas infection, await final cx and PICC placment -Dispo: home with home health 1-2 days
[2021-09-07] MEDS: INSULIN ASPART (NovoLOG) 100 UNIT/ML VIAL SQ SCH ×4 (10:51→21:49)
[2021-09-07] MEDS: metFORMIN 500 MG TAB PO SCH ×2 (10:51→17:50)
[2021-09-07] MEDS: FUROSEMIDE 40 MG TAB PO SCH (10:51)
[2021-09-07] MEDS: carvediloL 6.25 MG TAB PO SCH ×2 (10:51→17:50)
[2021-09-07] MEDS: LOSARTAN 25 MG TAB PO SCH (10:51)
[2021-09-07] MEDS: MULTIVITAMINS, THERA 1 EACH TAB PO SCH (10:52)
[2021-09-07] MEDS: polyethylene glycoL 3350 17 GM POWD.PACK PO SCH (10:52)
[2021-09-07] MEDS: GABAPENTIN 300 MG CAP PO SCH ×2 (10:52→21:49)
[2021-09-07] MEDS: Empagliflozin [Jardiance] PO SCH (11:58)
[2021-09-07 12:03] LABS: Glucose,Whole Blood 244 mg/dL (75-99)
[2021-09-07] MEDS: SENNOSIDES-DOCUSATE SODIUM 1 EACH TAB PO PRN (16:10)
[2021-09-07 17:07] LABS: Glucose,Whole Blood 162 mg/dL (75-99)
[2021-09-07 21:22] LABS: Glucose,Whole Blood 223 mg/dL (75-99)
[2021-09-07] MEDS: LACTATED RINGERS 1,000 ML IV SCH (21:50)
[2021-09-07] MEDS: HYDROcodone/APAP 10-325MG 1 EACH TAB PO PRN (21:54)
--- NOTE | 2021-09-07 23:01 | PN ---
PROGRESS NOTE DATE OF SERVICE: 09/07/2021 REASON FOR FOLLOWUP: Infected lumbar hardware. INTERVAL HISTORY: The patient is afebrile. The patient is breathing comfortably. The patient denies having any chest pain, shortness of breath or cough. No abdominal pain. Pain to the lumbar area is currently controlled. PHYSICAL EXAMINATION: Blood pressure 124/71 with a pulse of 87, temperature 98.3. She is 98% on room air. General description is a middle-aged female up in the chair in no distress. Respiratory system: Unlabored breathing, clear to auscultation anteriorly. Heart S1, S2. Regular rate and rhythm. Abdomen soft, no tenderness. LABS: Hemoglobin 9.1, white count 5.6. DIAGNOSTIC IMPRESSION AND PLAN: Patient with infected lumbar hardware, status post removal. Culture positive for Pseudomonas aeruginosa. Patient is covered with cefepime. Waiting for PICC line placement and outpatient IV antibiotic arrangements. Will obtain a baseline patient will be followed. Continue with supportive care. MMODL / IJN: [id number] /
[2021-09-08] MEDS: CEFEPIME 2 GM in SODIUM CHLORIDE 0.9% 100 ML IVPB SCH ×3 (00:50→15:20)
[2021-09-08] MEDS: ACETAMINOPHEN TAB 325 MG TAB PO SCH ×3 (00:51→09:42)
[2021-09-08] MEDS: LEVOTHYROXINE 100 MCG TAB PO SCH (05:00)
[2021-09-08] MEDS: LACTATED RINGERS 1,000 ML IV SCH (05:01)
[2021-09-08 05:06] VITALS: BP 128/74; PULSE 78; RESP 18; TEMP 98.5
[2021-09-08 07:07] LABS: African American GFR (CKD) >90 (>60 ml/min/1.73 sqM); Non-African American GFR(CKD) >90 (>60 ml/min/1.73 sqM)
[2021-09-08 07:17] LABS: Glucose,Whole Blood 207 mg/dL (75-99)
[2021-09-08] MEDS: HYDROcodone/APAP 5-325MG 1 EACH TAB PO PRN ×2 (09:39→15:19)
[2021-09-08] MEDS: Empagliflozin [Jardiance] PO SCH (09:41)
[2021-09-08] MEDS: carvediloL 6.25 MG TAB PO SCH (09:41)
[2021-09-08] MEDS: GABAPENTIN 300 MG CAP PO SCH (09:41)
[2021-09-08] MEDS: FUROSEMIDE 40 MG TAB PO SCH (09:41)
[2021-09-08] MEDS: INSULIN ASPART (NovoLOG) 100 UNIT/ML VIAL SQ SCH ×2 (09:41→13:52)
[2021-09-08] MEDS: MULTIVITAMINS, THERA 1 EACH TAB PO SCH (09:41)
[2021-09-08] MEDS: polyethylene glycoL 3350 17 GM POWD.PACK PO SCH (09:41)
[2021-09-08] MEDS: metFORMIN 500 MG TAB PO SCH (09:41)
[2021-09-08] MEDS: LOSARTAN 25 MG TAB PO SCH (09:41)
--- NOTE | 2021-09-08 09:47 | P.PN ---
Subjective Progress Note Date: 09/08/21 Principal diagnosis: 1. S/P L4-S1 fusion 2. Likely infected hardware 3. BCA s/p chemo/rads 4. Large presacral fluid collection, improving Patient seen at bedside this morning resting comfortably sitting up in chair. Patient says she got up with PT this morning and felt okay. Patient says she is ready and wanting to go home today. Patient denies chest pain, fever, SOB, N/V, change in vision, loss of bowel/bladder control. Objective - Vital Signs Vital signs: Vital Signs Temp 98.5 F 09/08/21 05:02 Pulse 78 09/08/21 05:02 Resp 18 09/08/21 05:02 BP 128/74 09/08/21 05:02 Pulse Ox 97 09/08/21 05:02 Intake & Output 09/07/21 09/08/21 09/08/21 18:59 06:59 18:59 Intake Total 1200 Output Total 975 160 Balance -975 1040 Intake: Intake, IV Titration 200 Amount Cefepime 2 gm In Sodium 200 Chloride 0.9% 100 ml @ 25 mls/hr IVPB Q8HR [facility] Rx# :[id number] Oral 1000 Output: Drainage 160 Lower Back 160 Urine 975 Other: Voiding Method Indwelling Catheter Indwelling Catheter - Exam Silver foam dressing removed and changed. Incision is clean, dry, intact. Golden were in good place and well aligned. Negative for any fluctance/purul ence. Drain was removed and 4 x 4's and Tegaderm were placed over incision. Sensation is equal, symmetric, bilaterally intact throughout upper and lower extremities. Moderate TTP along lumbar spine incision. NTTP throguhout rest of exam. Good ROM in bilaterall upper and lower extremities. 4+/5 in all major motor groups. Neurovascular status intact. Cap refill < 3 sec bilaterally in digits of hands. Radial pulses 2+, intact bilaterally. Negative Homans bilaterally - Labs CBC & Chem 7: 09/07/21 06:17 09/08/21 06:13 Labs: Abnormal Lab Results - Last 24 Hours (Table) 09/07/21 09/07/21 09/07/21 Range/Units 12:02 17:05 21:21 POC Glucose (mg/dL) 244 H 162 H 223 H (75-99) mg/dL 09/08/21 Range/Units 07:15 POC Glucose (mg/dL) 207 H (75-99) mg/dL Microbiology - Last 24 Hours (Table) 09/04/21 18:50 Gram Stain - Preliminary Back Tissue Culture - Preliminary 09/04/21 18:52 Gram Stain - Final Back Wound Culture - Final Pseudomonas aeruginosa Assessment and Plan Assessment: 1. S/P L4-S1 fusion 2. Likely infected hardware 3. BCA s/p chemo/rads 4. Large presacral fluid collection, improving Post op day 4 s/p Incision and drainage with removal of hardware lumbar spine with re-instrumentation L4 to S1 Plan: 1. S/P L4-S1 fusion; irritating hardware - surgery performed 09/04/2021 - Incision and drainage with removal of hardware lumbar spine with re-instrumentation L4 to S1. Patient stable at bedside this morning. dressing changed and drain pulled. Cultures finalized. cefepime has been started. Awaiting PICC Line placement. Patient orthopedically stable for discharge home. Plan discharge home today once PICC Line is placed 2. Appreicate medical and ID management 3. Pain Management - [place]; Flexeril; Gabapentin 4. DVT ppx - mechanical 5. GI ppx - Senna 6. PT/OT - WBAT w/walker 7. Discharge Planning - plan discharge home today once PICC Line is placed. Time with Patient: Less than 30
--- NOTE | 2021-09-08 10:04 | P.DS ---
Providers Date of admission: 09/04/21 10:20 Expected date of discharge: 09/08/21 Attending physician: Tanvir Toribio DO Consults: 09/04/21 18:48 Consult Physician Routine Consulting Provider: Selina Martin Consult Reason/Comments: abx management s/p Incision and drainage with removal of hardware lumbar sp Do you want consulting provider notified?: Yes 09/06/21 11:49 Consult Physician Routine Consulting Provider: Aric Haney Consult Reason/Comments: medical management, patient of Dr. Correa Do you want consulting provider notified?: Already Contacted Primary care physician: [facility] Course: Date of admission: 09/04/2021 Date of discharge: 09/08/2021 Admission diagnosis: 1. S/P L4-S1 fusion 2. Likely infected hardware 3. BCA s/p chemo/rads 4. Large presacral fluid collection, improving Discharge diagnosis: Same Attending physician: Dr. Toribio Surgical procedures: Incision and drainage with removal of hardware lumbar spine with re-instrumentation L4 to S1 Brief history: Patient is a 61-year-old female with a history of L4 to S1 fusion with likely infected hardware and large presacral fluid collection. At this point patient has failed conservative treatment measures and has opted to proceed with a elective incision drainage with removal hardware lumbar spine and instrumentation L4 to S1. Hospital course: Details of patient's surgery can be found in operative report. Patient tolerated the procedure well and was subsequently transported to orthopedic floor. Patient's orthopeidc and medical care was provided daily. Patient had daily laboratory tests performed for evaluation of overall blood counts. Patient had daily physical therapy to include strengthening range of motion as well as education with walker ambulation. Patient was treated with [Xarelto] for their postoperative DVT prophylaxis during their inpatient stay. Patient was noted to have a relatively uneventful postoperative course. Patient reported satisfactory pain control with oral pain medications by postoperative day 4. Patient showed satisfactory progress with physical therapy. Patient moved steadily through the program and had no difficulty meeting the goals by postoperative day 4. Given patient's otherwise satisfactory course and having met physical therapy goals, plan is to discharge patient [home] on postoperative day 4. Discharge condition/disposition: Patient will be discharged [home] in stable condition. Discharge medications: Instructions are given on resumption of patient's normal daily medications per primary care recommendation, in addition patient will be prescribed []. Spine Discharge and Recovery Instructions Date of Surgery: 09/04/2021 Diagnosis: Incision and drainage with removal of hardware lumbar spine with re- instrumentation L4 to S1 Procedure: 1. S/P L4-S1 fusion 2. Likely infected hardware 3. BCA s/p chemo/rads 4. Large presacral fluid collection, improving Medications: See medication list All medication refills should be obtained through your primary care doctor or your clinic spine surgeon. Please discuss prescription refills at your follow up appointment. Do not call the hospital for medication refills. Dressing: Leave your dressing in place for a total of 5 days post operatively. Then you may remove your dressing and leave open to air. Keep the area clean and if not able to keep area clean, then cover with sterile gauze and tape. Showering: You may shower 3 days after your procedure allowing soap and water to run over incision. Do not scrub. Do not soak. Blot dry. Follow up: Please confirm a follow up appointment with your surgeon 3 weeks post operatively. Please make an appointment to follow up with your PCP in 1-2 weeks after surgery for evaluation 3 phase, 3-week plan POST OP WEEKS 1-3 1. Lifting/carrying/pushing/pulling limited to less than 5 pounds. 2. Do not sit for longer than 15 minutes at one time. Get up and walk around. Prolonged sitting is NOT advised. If you lay down, see if you can tolerate laying down on you front (belly side) 3. Walk for periods of 15 minutes = 1 mile but no longer; do it multiple times times each day. 4. Ice your low back after activity. POST OP WEEKS 3-6 1. Lifting limited to less than 20 pounds. 2. Do not sit for longer than 30 minutes at a time. Frequently change positions. Use a sit-to stand workstation or take frequent breaks from sitting if you have returned to work. 3. Walk for 30 minutes each day. If possible, do these three or more times a day POST OP WEEKS 6+ At your 6-week appointment we will give you a physical therapy referral to focus on a core stabilization and strengthening program. You should also work on leg & buttock strengthening, hamstring & quadriceps stretching, and continue a low impact aerobic activity program such as swimming, walking, or riding a stationary bicycle. During the initial 6 weeks after your surgery, you are at the highest risk of re-injuring your spine. You should generally avoid BLTs (bending, lifting and twisting combination motions) and follow the above guidelines to reduce the chance of reinjury. You can anticipate post op appointments in our office at approximately 3 weeks and 6 weeks after your surgery. INCISION CARE: If your incision is not draining you do NOT need to cover it with a dressing. Keep your incision clean, dry and intact. In most cases, we apply skin glue, andrei or sutures to the incision at the time of surgery. This will be like a crust or have the appearance of a scab and will fall off in time on its own. The stitches or nadrei need to be removed at 3 weeks post op appointment. You may begin to shower 3 days after surgery (this allows the glue to braga well). However, please avoid scrubbing the incision site or peeling off any of the skin glue. This will ensure optimal healing of your incision. Also, during this time avoid soaking the incision area in water - this includes swimming pools, hot tubs or baths. No ointments, lotions or oils on the incision until your surgeon allows. Leave andrei, sutures or glue in place. Neurological dysfunction that comes on suddenly can also be a sign of a stroke. Below some common symptoms of a stroke are listed: B - balance difficulty such as sudden onset walking or leaning to one side - NEW E - eye problem such as sudden double vision or trouble seeing on one side - NEW F - Facial weakness or numbness on one side - NEW A - Arm or leg weakness or numbness on one side - NEW S - Slurred speech or difficulty with word finding - NEW T - Time is BRAIN! Call 911 as soon as you recognize these symptoms Diet: Consume a regular diet rich in vegetables and lean protein such as chicken or fish. You should consume in a ratio of approximately 20% fats|40% carbohydrate s|40%protein. Vegetables, sweet potatoes, brown rice or quinoa are examples of good carbohydrates. Chips, white bread, cookies and sweets/sugar are examples of bad carbohydrates. Limit your bad carbs, go wild with good carbs. "Life's Simple 7" Guidelines as per [employer] These will help you reclaim your life after surgery and counter helper in your recovery, keeping in mind your restrictions. (1) Get Active. Physical activity can help people lose weight, control high blood pressure and cholesterol, feel emotionally better, and sleep better. (2) Control Cholesterol. Avoid a diet high in saturated fat, trans fat, & cholesterol. Limit whole milk & cream, ice cream, butter, egg yolks, processed meats (like sausage and hot dogs), and fatty meats. Choose healthy foods that are low in saturated fat, trans fat and cholesterol which include: Fruits and vegetables, fiber rich grain products (like whole grain pasta and brown rice), lean meat such as chicken, fish, nuts, seeds, and legumes. (3) Eat Better. Eat small portions. Shop at the grocery with a list and do not stray from it. Tips for a healthy diet include: Limit sodium intake to less than 1500mg daily, avoid prepackaged, processed, and fast foods, choose a diet rich in fruits, vegetables, and whole grain, high fiber foods, and limit saturated & cholesterol in your diet. (4) Manage Blood Pressure. If you have high blood pressure, you should have a cuff at home so that you can check your blood pressure regularly. Be sure you have a good cuff. An arm one is generally better than a wrist one. Bring the cuff to a doctor's appointment to validate that the measurements that your cuff are taking are accurate. Take your blood pressure twice daily when you are sitting down and relaxing. Record the numbers in a log and bring this log with you to your doctors' appointments. (5) Lose Weight if your BMI is above 25. A healthy BMI is between 19-25. To calculate Your BMI, you may use a Standard BMI Calculator on the NIH BMI website: <www.nhlbi.nih.gov/guidelines/obesity/BMI/bmicalc.htm>. Weigh oneself daily. If you are overweight, set a goal to lose weight. A pound a week loss if needed is a good target. (6) Reduce Blood Sugar. Limit foods and liquids with "added sugars." (Added sugars include sucrose, fructose, glucose, maltose, dextrose, high fructose corn syrup, corn syrup, concentrated fruit juice and honey). (7) Stop Smoking. If you smoke, quitting smoking is one of the best things that you can do for your health. Smoking increases your risk of heart attack, stroke, and peripheral vascular disease, which is a build-up of plaque in your arteries. Please discard all the cigarettes and lighters in your house. Have a plan for what you will do when you have the urge to smoke. Direct and second- hand smoke shortens your life as well as the lives of your family, friends and others around you. For your health and the health of those around you, please consider quitting! Proper Bending Body Mechanics: Maintain a wide stance with one foot slightly in front of the other. Keep your back straight. Bend utilizing the strength in your hips and knees. Do not bend at the waist. Maintain the lifted object at your waist-level close to your body. Avoid lifting weight that causes immediately pain or pain anywhere in the body afterwards. Smoking/Nicotine If there was ever one thing that you could do to increase your overall health, decrease your risk of cardiovascular problems by about 39% the second you make the choice, it is to STOP SMOKING. Your body's most instant gratification is the second you stop smoking. We have all heard the studies, read the articles but it is true, smoking is extremely bad for your overall health, and moreover it is detrimental to your bone health. Nicotine, IN ANY FORM, kills bone cells, prevents your body from healing fractures, and significantly prolongs healing after surgery. In spine surgery specifically, it increases your risk of not healing your bones to create a fusion and increases your risk of having a revision surgery due to this up to 60%. I know it is hard. I know it feels impossible. But there are ways. Take control of your life. We are here to help you through it. And when you are ready, ask us and we can direct you to help if you desire. Use the START Plan to Quit Smoking (please visit the Helpguide.org website listed below for more information): S = Set a quit date. Choose a date within the next 2 weeks, so you have enough time to prepare without losing your motivation to quit. If you mainly smoke at work, quit on the weekend, so you have a few days to adjust to the change. T = Tell family, friends, and co-workers that you plan to quit. Let your friends and family in on your plan to quit smoking and tell them you need their support and encouragement to stop. Look for a quit xenia who wants to stop smoking as well. You can help each other get through the rough times. A = Anticipate and plan for the challenges you'll face while quitting. Most people who begin smoking again do so within the first 3 months. You can help yourself make it through by preparing ahead for common challenges, such as nicotine withdrawal and cigarette cravings. R = Remove cigarettes and other tobacco products from your home, car, and work. Throw away all your cigarettes (no emergency pack!), lighters, ashtrays, and matches. Wash your clothes and freshen up anything that smells like smoke. Shampoo your car, clean your drapes and carpet, and steam your furniture. T = Talk to your doctor about getting help to quit. Your doctor can prescribe medication to help with withdrawal and suggest other alternatives. If you can't see a doctor, you can get many products over the counter at your local pharmacy or grocery store, including the nicotine patch, nicotine lozenges, and nicotine gum. Resources for Quitting Smoking: <https://www.[place].gov/documents/[facility]/Quit_Tobacco_Resources_for_patients_313 480_7.pdf> Supplementation: Take recommended dosages of Vitamin D and Calcium to help fortify your bones and help them to heal. See your health maintenance packet for dosages and recommended levels. DVT/VTE prophylaxis: You will be given compression stockings from the hospital. Wear these daily for the first two weeks after surgery. You may take them off at night. You may be prescribed a medication to help thin your blood. Take this as directed. If you are not prescribed this medication, early and frequent ambulation has been shown to be the best prophylaxis to deep vein thrombosis and sequelae related to this event. Assessment: 1. S/P L4-S1 fusion 2. Likely infected hardware 3. BCA s/p chemo/rads 4. Large presacral fluid collection, improving Procedures: Incision and drainage with removal of hardware lumbar spine with re- instrumentation L4 to S1 Patient Condition at Discharge: Good Plan - Discharge Summary Discharge Rx Participant: No New Discharge Prescriptions: New Cyclobenzaprine [Flexeril] 10 mg PO HS #20 tab Gabapentin 300 mg PO BID #30 cap HYDROcodone/APAP 7.5-325MG [Blackstock 7.5-325] 1 tab PO Q6HR PRN #32 tab PRN Reason: Pain Sennosides [Senna] 8.6 mg PO DAILY #20 tablet No Action metFORMIN HCL [Glucophage] 1,000 mg PO BID Multivitamins, Thera [Multivitamin (formulary)] 1 tab PO DAILY Levothyroxine Sodium [Synthroid] 100 mcg PO DAILY Aspirin EC [Ecotrin Low Dose] 81 mg PO HS Simvastatin [Zocor] 40 mg PO DAILY Spironolactone [Aldactone] 12.5 mg PO DAILY Pregabalin [Lyrica] 150 mg PO BID Furosemide [Lasix] 40 mg PO DAILY Carvedilol [Coreg] 6.25 mg PO BID Empagliflozin [Jardiance] 10 mg PO DAILY Pyridoxine HCl (Vitamin B6) [Vitamin B-6] 100 mg PO DAILY glipiZIDE XL [Glucotrol XL] 2.5 mg PO BID Losartan Potassium [Cozaar] 25 mg PO DAILY Discharge Medication List Aspirin EC [Ecotrin Low Dose] 81 mg PO HS 08/06/15 [History] Levothyroxine Sodium [Synthroid] 100 mcg PO DAILY 08/06/15 [History] Multivitamins, Thera [Multivitamin (formulary)] 1 tab PO DAILY 08/06/15 [History] Simvastatin [Zocor] 40 mg PO DAILY 08/06/15 [History] metFORMIN HCL [Glucophage] 1,000 mg PO BID 08/06/15 [History] Carvedilol [Coreg] 6.25 mg PO BID 06/08/21 [History] Furosemide [Lasix] 40 mg PO DAILY 06/08/21 [History] Losartan Potassium [Cozaar] 25 mg PO DAILY 06/08/21 [History] Pregabalin [Lyrica] 150 mg PO BID 06/08/21 [History] Spironolactone [Aldactone] 12.5 mg PO DAILY 06/08/21 [History] glipiZIDE XL [Glucotrol XL] 2.5 mg PO BID 06/08/21 [History] Empagliflozin [Jardiance] 10 mg PO DAILY 08/27/21 [History] Pyridoxine HCl (Vitamin B6) [Vitamin B-6] 100 mg PO DAILY 08/27/21 [History] Cyclobenzaprine [Flexeril] 10 mg PO HS #20 tab 09/08/21 [Rx] Gabapentin 300 mg PO BID #30 cap 09/08/21 [Rx] HYDROcodone/APAP 7.5-325MG [Blackstock 7.5-325] 1 tab PO Q6HR PRN #32 tab 09/08/21 [Rx] Sennosides [Senna] 8.6 mg PO DAILY #20 tablet 09/08/21 [Rx] Follow up Appointment(s)/Referral(s): [facility], [NON-STAFF] - 1 Week MID,Infusion [NON-STAFF] - 1 Week Tanvir Toribio DO [Doctor of Osteopathic Medicine] - 2 Weeks Activity/Diet/Wound Care/Special Instructions: Keep incision clean, dry, intact. Silver foam dressing may removed in 3 days, 09/11/2021. Medications: Blackstock; Flexeril; gabapentin; senna Spine Discharge and Recovery Instructions Date of Surgery: 09/04/2021 Diagnosis: Incision and drainage with removal of hardware lumbar spine with re- instrumentation L4 to S1 Procedure: 1. S/P L4-S1 fusion 2. Likely infected hardware 3. BCA s/p chemo/rads 4. Large presacral fluid collection, improving Medications: See medication list All medication refills should be obtained through your primary care doctor or your clinic spine surgeon. Please discuss prescription refills at your follow up appointment. Do not call the hospital for medication refills. Dressing: Leave your dressing in place for a total of 5 days post operatively. Then you may remove your dressing and leave open to air. Keep the area clean and if not able to keep area clean, then cover with sterile gauze and tape. Showering: You may shower 3 days after your procedure allowing soap and water to run over incision. Do not scrub. Do not soak. Blot dry. Follow up: Please confirm a follow up appointment with your surgeon 3 weeks post operatively. Please make an appointment to follow up with your PCP in 1-2 weeks after surgery for evaluation 3 phase, 3-week plan POST OP WEEKS 1-3 1. Lifting/carrying/pushing/pulling limited to less than 5 pounds. 2. Do not sit for longer than 15 minutes at one time. Get up and walk around. Prolonged sitting is NOT advised. If you lay down, see if you can tolerate laying down on you front (belly side) 3. Walk for periods of 15 minutes = 1 mile but no longer; do it multiple times times each day. 4. Ice your low back after activity. POST OP WEEKS 3-6 1. Lifting limited to less than 20 pounds. 2. Do not sit for longer than 30 minutes at a time. Frequently change positions. Use a sit-to stand workstation or take frequent breaks from sitting if you have returned to work. 3. Walk for 30 minutes each day. If possible, do these three or more times a day POST OP WEEKS 6+ At your 6-week appointment we will give you a physical therapy referral to focus on a core stabilization and strengthening program. You should also work on leg & buttock strengthening, hamstring & quadriceps stretching, and continue a low impact aerobic activity program such as swimming, walking, or riding a stationary bicycle. During the initial 6 weeks after your surgery, you are at the highest risk of re-injuring your spine. You should generally avoid BLTs (bending, lifting and twisting combination motions) and follow the above guidelines to reduce the chance of reinjury. You can anticipate post op appointments in our office at approximately 3 weeks and 6 weeks after your surgery. INCISION CARE: If your incision is not draining you do NOT need to cover it with a dressing. Keep your incision clean, dry and intact. In most cases, we apply skin glue, andrei or sutures to the incision at the time of surgery. This will be like a crust or have the appearance of a scab and will fall off in time on its own. The stitches or andrei need to be removed at 3 weeks post op appointment. You may begin to shower 3 days after surgery (this allows the glue to braga well). However, please avoid scrubbing the incision site or peeling off any of the skin glue. This will ensure optimal healing of your incision. Also, during this time avoid soaking the incision area in water - this includes swimming pools, hot tubs or baths. No ointments, lotions or oils on the incision until your surgeon allows. Leave andrei, sutures or glue in place. Neurological dysfunction that comes on suddenly can also be a sign of a stroke. Below some common symptoms of a stroke are listed: B - balance difficulty such as sudden onset walking or leaning to one side - NEW E - eye problem such as sudden double vision or trouble seeing on one side - NEW F - Facial weakness or numbness on one side - NEW A - Arm or leg weakness or numbness on one side - NEW S - Slurred speech or difficulty with word finding - NEW T - Time is BRAIN! Call 911 as soon as you recognize these symptoms Diet: Consume a regular diet rich in vegetables and lean protein such as chicken or fish. You should consume in a ratio of approximately 20% fats|40% carbohydrates|40%protein. Vegetables, sweet potatoes, brown rice or quinoa are examples of good carbohydrates. Chips, white bread, cookies and sweets/sugar are examples of bad carbohydrates. Limit your bad carbs, go wild with good c arbs. "Life's Simple 7" Guidelines as per [employer] These will help you reclaim your life after surgery and counter helper in your recovery, keeping in mind your restrictions. (1) Get Active. Physical activity can help people lose weight, control high blood pressure and cholesterol, feel emotionally better, and sleep better. (2) Control Cholesterol. Avoid a diet high in saturated fat, trans fat, & cholesterol. Limit whole milk & cream, ice cream, butter, egg yolks, processed meats (like sausage and hot dogs), and fatty meats. Choose healthy foods that are low in saturated fat, trans fat and cholesterol which include: Fruits and vegetables, fiber rich grain products (like whole grain pasta and brown rice), lean meat such as chicken, fish, nuts, seeds, and legumes. (3) Eat Better. Eat small portions. Shop at the grocery with a list and do not stray from it. Tips for a healthy diet include: Limit sodium intake to less than 1500mg daily, avoid prepackaged, processed, and fast foods, choose a diet rich in fruits, vegetables, and whole grain, high fiber foods, and limit saturated & cholesterol in your diet. (4) Manage Blood Pressure. If you have high blood pressure, you should have a cuff at home so that you can check your blood pressure regularly. Be sure you have a good cuff. An arm one is generally better than a wrist one. Bring the cuff to a doctor's appointment to validate that the measurements that your cuff are taking are accurate. Take your blood pressure twice daily when you are sitting down and relaxing. Record the numbers in a log and bring this log with you to your doctors' appointments. (5) Lose Weight if your BMI is above 25. A healthy BMI is between 19-25. To calculate Your BMI, you may use a Standard BMI Calculator on the NIH BMI website: <www.nhlbi.nih.gov/guidelines/obesity/BMI/bmicalc.htm>. Weigh oneself daily. If you are overweight, set a goal to lose weight. A pound a week loss if needed is a good target. (6) Reduce Blood Sugar. Limit foods and liquids with "added sugars." (Added sugars include sucrose, fructose, glucose, maltose, dextrose, high fructose corn syrup, corn syrup, concentrated fruit juice and honey). (7) Stop Smoking. If you smoke, quitting smoking is one of the best things that you can do for your health. Smoking increases your risk of heart attack, stroke, and peripheral vascular disease, which is a build-up of plaque in your arteries. Please discard all the cigarettes and lighters in your house. Have a plan for what you will do when you have the urge to smoke. Direct and second- hand smoke shortens your life as well as the lives of your family, friends and others around you. For your health and the health of those around you, please consider quitting! Proper Bending Body Mechanics: Maintain a wide stance with one foot slightly in front of the other. Keep your back straight. Bend utilizing the strength in your hips and knees. Do not bend at the waist. Maintain the lifted object at your waist-level close to your body. Avoid lifting weight that causes immediately pain or pain anywhere in the body afterwards. Smoking/Nicotine If there was ever one thing that you could do to increase your overall health, decrease your risk of cardiovascular problems by about 39% the second you make the choice, it is to STOP SMOKING. Your body's most instant gratification is the second you stop smoking. We have all heard the studies, read the articles but it is true, smoking is extremely bad for your overall health, and moreover it is detrimental to your bone health. Nicotine, IN ANY FORM, kills bone cells, prevents your body from healing fractures, and significantly prolongs healing after surgery. In spine surgery specifically, it increases your risk of not healing your bones to create a fusion and increases your risk of having a revision surgery due to this up to 60 %. I know it is hard. I know it feels impossible. But there are ways. Take control of your life. We are here to help you through it. And when you are ready, ask us and we can direct you to help if you desire. Use the START Plan to Quit Smoking (please visit the Helpguide.org website listed below for more information): S = Set a quit date. Choose a date within the next 2 weeks, so you have enough time to prepare without losing your motivation to quit. If you mainly smoke at work, quit on the weekend, so you have a few days to adjust to the change. T = Tell family, friends, and co-workers that you plan to quit. Let your friends and family in on your plan to quit smoking and tell them you need their support and encouragement to stop. Look for a quit xenia who wants to stop smoking as well. You can help each other get through the rough times. A = Anticipate and plan for the challenges you'll face while quitting. Most people who begin smoking again do so within the first 3 months. You can help yourself make it through by preparing ahead for common challenges, such as nicotine withdrawal and cigarette cravings. R = Remove cigarettes and other tobacco products from your home, car, and work. Throw away all your cigarettes (no emergency pack!), lighters, ashtrays, and matches. Wash your clothes and freshen up anything that smells like smoke. Shampoo your car, clean your drapes and carpet, and steam your furniture. T = Talk to your doctor about getting help to quit. Your doctor can prescribe medication to help with withdrawal and suggest other alternatives. If you can't see a doctor, you can get many products over the counter at your local pharmacy or grocery store, including the nicotine patch, nicotine lozenges, and nicotine gum. Resources for Quitting Smoking: <https://www.[place].gov/documents/mdc/Quit_Tobacco_Resources_for_patients_313 480_7.pdf> Supplementation: Take recommended dosages of Vitamin D and Calcium to help fortify your bones and help them to heal. See your health maintenance packet for dosages and recommended levels. DVT/VTE prophylaxis: You will be given compression stockings from the hospital. Wear these daily for the first two weeks after surgery. You may take them off at night. You may be prescribed a medication to help thin your blood. Take this as directed. If you are not prescribed this medication, early and frequent ambulation has been shown to be the best prophylaxis to deep vein thrombosis and sequelae related to this event. Discharge Disposition: HOME WITH HOME HEALTH SERVICES
--- NOTE | 2021-09-08 15:09 | P.PN ---
Subjective Progress Note Date: 09/08/21 Uzair is a 61-year-old white female well-known to me and my practice. She has been having history of ongoing low back pain with a bulge at her lumbar area. This is found to be an anterior presacral abscess possibly infected hardware. She had lumbosacral surgery with Dr. Patel in 2002. She is been dealing with issues of the back since 2011. She been on long-term antibiotics Dr. Martin for concern infected hardware. She reports that it got quite a bit worse after chemotherapy for breast cancer in 2019. She is status post L4 S1 fusion with infected hardware removal and cleaning. And drainage of her large presacral fluid collection. Cultures show gram-negative bacilli Currently she complains of some mild back pain. She denies any chest pains, pressures, shortness of breath. She is complaining of some constipation. 09/08/21 significant clinical improvement. Pain controlled. Passing flatus. Ambulating, tolerating exertion well. Denies lightheadedness, dizziness or focal deficits.Denies chest pain, palpitations or shortness of breath. Afebrile. Maintained on IV antibiotics of cefepime for lumbar cultures positive for pseudomonas aeruginosa. Objective - Vital Signs Vital signs: Vital Signs Temp 98.5 F 09/08/21 05:02 Pulse 78 09/08/21 05:02 Resp 18 09/08/21 05:02 BP 128/74 09/08/21 05:02 Pulse Ox 97 09/08/21 05:02 Intake & Output 09/07/21 09/08/21 09/08/21 18:59 06:59 18:59 Intake Total 1200 Output Total 975 160 Balance -975 1040 Intake: Intake, IV Titration 200 Amount Cefepime 2 gm In Sodium 200 Chloride 0.9% 100 ml @ 25 mls/hr IVPB Q8HR [facility] Rx# :[id number] Oral 1000 Output: Drainage 160 Lower Back 160 Urine 975 Other: Voiding Method Indwelling Catheter Indwelling Catheter Indwelling Catheter - Exam GENERAL: Alert and oriented 3 ,Sitting up in a chair, no acute distress HEAD: Atraumatic, normocephalic. EYES: Pupils equal round and reactive to light, extraocular movements intact, sclera anicteric, conjunctiva are normal. ENT: Moist mucous membranes. NECK: Supple, no JVD LUNGS: Breath sounds clear to auscultation bilaterally and equal. No wheezes rales or rhonchi. HEART: Regular rate and rhythm without murmurs, rubs or gallops.S1S2 Normal ABDOMEN: Soft, nontender, normoactive bowel sounds. No guarding, no rebound. No masses appreciated. EXTREMITIES: Normal range of motion, no pitting or edema. No clubbing or cyanosis. NEUROLOGICAL: Cranial nerves II through XII grossly intact. - Labs CBC & Chem 7: 09/07/21 06:17 09/08/21 06:13 Labs: Abnormal Lab Results - Last 24 Hours (Table) 09/07/21 09/07/21 09/07/21 Range/Units 12:02 17:05 21:21 ESR (0-30) mm/Hr POC Glucose (mg/dL) 244 H 162 H 223 H (75-99) mg/dL 09/08/21 09/08/21 Range/Units 06:13 07:15 ESR 103 H (0-30) mm/Hr POC Glucose (mg/dL) 207 H (75-99) mg/dL Microbiology - Last 24 Hours (Table) 09/04/21 18:50 Gram Stain - Preliminary Back Tissue Culture - Preliminary 09/04/21 18:52 Gram Stain - Final Back Wound Culture - Final Pseudomonas aeruginosa Assessment and Plan Assessment: (1) Status post lumbar spine surgery for decompression of spinal cord Current Visit: Yes Status: Acute Code(s): Z98.890 - OTHER SPECIFIED POSTPROCEDURAL STATES SNOMED Code(s): 167426655 (2) Essential (primary) hypertension Current Visit: Yes Status: Acute Code(s): I10 - ESSENTIAL (PRIMARY) HYPERTENSION SNOMED Code(s): 28077829 (3) Mixed hyperlipidemia Current Visit: Yes Status: Acute Code(s): E78.2 - MIXED HYPERLIPIDEMIA SNOMED Code(s): 395879005 (4) Acquired hypothyroidism Current Visit: Yes Status: Acute Code(s): E03.9 - HYPOTHYROIDISM, UNSPECIFIED SNOMED Code(s): 752535791 (5) H/O lumbosacral spine surgery Current Visit: No Status: Acute Code(s): Z98.890 - OTHER SPECIFIED POSTPROCEDURAL STATES SNOMED Code(s): 340638077 (6) H/O therapeutic radiation Current Visit: No Status: Acute Code(s): Z92.3 - PERSONAL HISTORY OF IRRADIATION SNOMED Code(s): 785778600 (7) Type 2 diabetes mellitus without complications Current Visit: No Status: Acute Code(s): E11.9 - TYPE 2 DIABETES MELLITUS WITHOUT COMPLICATIONS SNOMED Code(s): 843752396 (8) Wound infection, lumbar culture reporting pseudomonas aeruginosa Current Visit: No Status: Acute Code(s): T14.8XXA - OTHER INJURY OF UNSPECIFIED BODY REGION, INITIAL ENCOUNTER; L08.9 - LOCAL INFECTION OF THE SKIN AND SUBCUTANEOUS TISSUE, UNSP SNOMED Code(s): 57709062 (9) Wound of back Current Visit: No Status: Acute Code(s): S21.209A - UNSP OPN WND UNSP BK WL OF THORAX W/O PENET THOR CAV, INIT SNOMED Code(s): 571268317 Plan: Continue on current medication regime ,monitoring and symptomatic treatment. Significant clinical improvement. PICC line placement pending, patient will be discharged home today as per primary pending authorization of IV antibiotics/ID clearance. Follow up with Dr. Correa in 1 week. The impression and plan of care has been dictated as directed. : I performed a history and examination of this patient, discussed the same with the dictator. I agree with the dictator's note ,documented as a scribe. Any additional findings or plans will be noted.
--- NOTE | 2021-09-08 15:09 | IR ---
PICC LINE PLACEMENT: HISTORY: Infection requiring long-term antibiotic therapy PROCEDURE: Ultrasound and fluoroscopic guidance of PICC line placement. COMPLICATIONS: None ANESTHESIA: 1. 1% Lidocaine locally. FINDINGS/TECHNIQUE: The procedure was explained to the patient. The risks, complications, benefits and alternatives were discussed and any questions were answered. Informed consent was obtained. The patient was placed supine on the fluoroscopic table and prepped and draped in the usual sterile fash ion. Utilizing a 21 gauge needle and sonographic and fluoroscopic guidance, access in the right cep halic vein was achieved and there is placement of a 0.018 guidewire. The vein is patent. A 4-F mark th was placed over the guidewire. The guidewire and dilator were removed and a 4-F. PICC line was pl aced through the sheath with the tip at the level of the SVC. The sheath was removed, the catheter w as flushed and sutured into position. The patient was stable throughout the procedure and remained s table upon discharge from the Department of Radiology. The vein puncture was patent under ultrasound. A king scale image was obtained to document patency of the vein punctured. All elements of the maximal barrier technique were utilized. FLUOROSCOPY TIME: 0.6 minutes and one image submitted IMPRESSION: Successful PICC line placement under ultrasound and fluoroscopic guidance.
--- NOTE | 2021-09-08 20:38 | PN ---
PROGRESS NOTE DATE OF SERVICE: 09/08/2021 REASON FOR FOLLOWUP: Infected lumbar hardware. INTERVAL HISTORY: The patient is afebrile. The patient is breathing comfortably. The patient denies having any chest pain or shortness of breath or cough. No nausea, vomiting. No abdominal pain or diarrhea. PHYSICAL EXAMINATION: Blood pressure 128/74, pulse of 78, temperature 98.5. She is 96% on room air. General description is a middle-aged female up in the chair in no distress. Respiratory system: Unlabored breathing, decreased intensity of breath sounds. No wheeze. Heart S1, S2. Regular rate and rhythm. Abdomen soft, no tenderness. LABS: Sedimentation rate is 103. Blood cultures negative. DIAGNOSTIC IMPRESSION AND PLAN: Patient with infected hardware to the lumbosacral spine area, status post removal of the hardware. Culture positive for Pseudomonas. Patient is covered with cefepime. Plan is for at least 6 weeks of IV antibiotics ready to go home from ID standpoint. close outpatient followup. MMODL / IJN: [id number] /
--- NOTE | 2021-09-17 09:16 | P.OP ---
Date of Procedure: 09/04/21 Preoperative Diagnosis: 1. L4-5 pseudoarthrosis 2. s/p L4-S1 fusion 3. Presumed infected hardware with draining sinus tract 4. hx BCA 5. Retroperitoneal abscess/phlegmon Postoperative Diagnosis: 1. L4-5 pseudoarthrosis 2. s/p L4-S1 fusion 3. Presumed infected hardware with draining sinus tract 4. hx BCA 5. Retroperitoneal abscess/phlegmon Procedure(s) Performed: 1. Incision and drainage with excisional debridment lumbar spine -Knife used for incision and excision of skin, soft tissues and tract -Kerrisons and rongure for excision and removal and debridement 2. Irrigation and debridement skin, soft tissues, muscle and bone lumbar spine -Knife used for incision and excision of skin, soft tissues and tract -Kerrisons and rongure and riaz for excision and removal and debridement 3. Exploration of fusion L4-S1 4. Removal of hardware L4-S1 5. Revision decompression and laminectomy L4-S1 6. Revision posteriolateral fusion L4-S1 for pseudoarthrosis 7. Excision of sinus tract low back 8. Use of intraoperative neuromonitoring 9. Interpretation of intraoperative flouroscopy <1 hr Implants: UDR removal [place] implant Bio4, allograft Anesthesia: GETA Surgeon: Tanvir Toribio Director Information #1: Yosef Fernandez (Was present for the entire case and necessary due to the complextiy of the case) Estimated Blood Loss (ml): 350 IV fluids (ml): 2,000 Urine output (ml): 250 Pathology: other (Low back cx and bx) Condition: stable Disposition: PACU Indications for Procedure: 61 yo female with long history of low back pain who underwent a fusion in 2002 did well initially but over the past 3-4 years has had intermittent drainage from the wound. She was on assisted antibiotics for this and her course was complicated by BCA and chemo/rad treatments. This may have actually incited her drainage then. She was found to have a large retroperitoneal phlegmon/abscess anterior to the sacrum and L5. She saw several different surgeons for this and was even at one point admitted to [facility] where they tried to aspirate it via CT guided with no improvement. She has been followed by myself and the [facility] for a while now and on her most recent visit she has been on antibiotic holiday to see what happens with her situation and back. She presented and had a draining sinus tract from her low back wound with purulence and drainage from this area. She has been afebrile the entire course. Her labs poorly reflect what is happening with her at this point but she does have some back pain as well as this drainage. We discussed at length multiple different treatment avenues. I spoke with her infectious disease doctor at length as well about treatment options and what to do . Most recently she was on a medication for this and it made her very sick, so we discussed and come to the conclusion with her that the hardware needs to be explored, removed and possible reinstrumentation for pseudoartrhosis at L4-5. She has has agreed to this as she has been on abx for so long that she wants to try anthing possible to get off of these. Her recent MRIs have shown that the retroperitoneal collection has improved, but that the collection in her low back as well as sinus tract has remained the same. At this point the only definitive would be to drain this, culture her back and replace or remove hardware based on her stability. She has agreed. Her who was at bedside today also agrees. We discussed risks as outline in risk review. The consent was addended to reflect risk review and she agreed. They were willing to proceed. Description of Procedure: The patient was seen and examined in the preoperative area. All preoperative protocols were followed. Informed consent was obtained risks and benefits of the procedure were discussed at length. Risks including bleeding infection damage to the surrounding tissue and risk of reoperation were discussed with the patient. Risk of anesthesia up to and including was a discussed with the patient. These are outlined in the risk review. They were willing to accept these risks and all of the risks of surgery. The patient was given a weight- based dose of antibiotics in the form of vancomycin weight-based dose. The patient was seen and evaluated by the anesthesia team who deemed them fit for surgery. The site was marked, the patient was willing to proceed with the procedure. The patient was transferred to the operative suite by the Department of anesthesia. They were then drifted off to sleep by the department anesthesia and GETA was performed. The patient tolerated this well. Murphy catheter was placed by nursing staff, atraumatically. Once confirmation of lines and ventilation the patient was transferred to a prone Vaughn table very carefully. All bony prominences including wrists, elbows, axilla, chest, hips, and thighs, and feet were padded very well. Special attention was paid to the genitalia and these were padded accordingly. SCDs were placed on bilateral lower extremities and were connected. Arms were well padded and placed on arm boards up and out in the 90/90 position. Once in position, again we confirmed good ventilation capabilities and that lines were running appropriately. The patient's lumbar spine was then exposed. 1010s were placed outlining the incision site. Standard alcohol was used to clean the incision site and allowed to dry. C-arm was used to biomark the patient and confirm level for incision which was marked with a skin marker. Operative briefing was performed with all teams and everyone in agreement to proceed. The patient was then prepped and draped in a normal sterile fashion. Timeout was then performed and all parties were in agreement with the procedure to be performed. Incision was made over the previously marked area dissection taken down until the spinous process of L3 was identified as the only normal anatomy remaining. We then proceeded with careful midline dissection until we encountered the cross-link and the previous hardware. We took cultures as we descended down. Superficially there was a sinus tract which was excised this then tracked down to the fascia and then out to the right hand side of the paraspinal musculature. We tagged this spot so that we can come back to her later. It did track deep into the wound as well and subfascially. We then proceeded to dissect over the posterior lateral region subperiosteally and on top of the previous hardware. Purulence was noted surrounding the. Previous hardware as well as the cross- link and there were cultures taken of this area as well as tissue samples. We explored the fusion and hardware in this area. Once the hardware and everything was exposed we removed set screws and the cross-link. We then proceeded to remove the screws the L4 screws bilaterally were very loose. The L5 screws were also loose bilaterally. The S1 screws were solid but we did remove them. We then checked for stability at L4-L5 and there was still motion within the segments. We proceeded with revision decompression in this area using high- speed bur as well as Kerrison rongeurs and rongeurs. We took tissue samples as well as cultures of the area. We performed debridement of skin and soft tissue muscle and bone of any necrotic or infected-looking material. Once this was accomplished along with the revision L4 to S1 decompression did replace screws at L4 and S1 bilaterally. We performed intradiscal takedown of L4-L5 for the placement of more graft material due to pseudoarthrosis in this area. This was in a posterior lateral T lift type technique. We then packed graft anteriorly into this area. We then copiously irrigated the wound with 6 L of antibiotic irrigation followed by 3 L of normal sterile saline. Once we had debrided and irrigated we replaced rods and secured them with set caps and final tightened them. Final images were taken showing good placement of hardware as well as decompression and debridement. We then turned our attention to the previous sinus tract. We did follow this out into the paraspinal musculature on the right-hand side. It seemed to flow over the PSIS and then turned anteriorly. We follow this as far as we are able and comfortable without invading the retroperitoneal space and removed it. We excised the sinus tract and then closed it off with a suture. We then debrided the area of any tissue and sent sinus tract for culture and pathology. We then copiously irrigated this area with 3 L of normal sterile saline as well as the remainder. We then packed allograft into the posterior lateral gutters once again L4 to S1 to facilitate fusion after further decortication of the spinous transverse process. We then placed 2 g of vancomycin powder deep within the wound. We placed Cellerate into the area suprafascial he wear the tract had formed to allow for scar tissue from this area. We then proceeded with complex layered closure first of the deep fascia with #1 Vicryl followed by 0 PDS. Then closed the deep subcu tissue with 0 PDS the suprasellar superficial subcu tissue with 2-0 PDS and the skin with skin andrei. Prior to this a drain had been placed deep subfascially and was taken out a separate hole. This was then sewn in place. Drain was connected and had good suction. There are no intraoperative neuro monitoring changes throughout the case all screws tested above 20 mA when tested prior to lizette placement. No EMG bursts. We then cleaned the wound sterilely and dressed it with operative foam 4 x 4's and a drain sponge and Tegaderm. The patient was transferred back to their hospital bed atraumatically. Drain continued to hold suction and were in good position. Patient was then awakened and extubated by the department of anesthesia having tolerated the procedure very well with no complications. They were transferred to the postoperative care unit in stable condition.
== END 2021-09-08 19:21 | disposition home health service (06) | DRG 459 ==
LOC: 2ORMAIN 10:20 → EDSTATUS 12:30 → 5NMEDONC 19:06
PROVIDERS: ADMIT Orthopaedic Surgery; ATTEND Orthopaedic Surgery
PROC: 0JB70ZZ Excision of Back Subcutaneous Tissue and Fascia, Open Approach (ICD-10-PCS; 2021-09-04)
PROC: 0SB00ZZ Excision of Lumbar Vertebral Joint, Open Approach (ICD-10-PCS; 2021-09-04)
PROC: 0SP004Z Removal of Internal Fixation Device from Lumbar Vertebral Joint, Open Approach (ICD-10-PCS; 2021-09-04)
PROC: 0SP304Z Removal of Internal Fixation Device from Lumbosacral Joint, Open Approach (ICD-10-PCS; 2021-09-04)
PROC: 0SG3071 Fusion of Lumbosacral Joint with Autologous Tissue Substitute, Posterior Approach, Posterior Column, Open Approach (ICD-10-PCS; 2021-09-04)
PROC: 3E0U029 Introduction of Other Anti-infective into Joints, Open Approach (ICD-10-PCS; 2021-09-04)
PROC: 3E0U029 Introduction of Other Anti-infective into Joints, Open Approach (ICD-10-PCS; 2021-09-04)
PROC: 4A11X4G Monitoring of Peripheral Nervous Electrical Activity, Intraoperative, External Approach (ICD-10-PCS; 2021-09-04)
PROC: 0SG0071 Fusion of Lumbar Vertebral Joint with Autologous Tissue Substitute, Posterior Approach, Posterior Column, Open Approach (ICD-10-PCS; principal; 2021-09-04 12:30)
PROC: 05HD33Z Insertion of Infusion Device into Right Cephalic Vein, Percutaneous Approach (ICD-10-PCS; 2021-09-08)
PROC: 02HV33Z Insertion of Infusion Device into Superior Vena Cava, Percutaneous Approach (ICD-10-PCS; 2021-09-08)
DX: T84.63XA Infection and inflammatory reaction due to internal fixation device of spine, initial encounter (principal); K68.19 Other retroperitoneal abscess; M96.0 Pseudarthrosis after fusion or arthrodesis; L08.9 Local infection of the skin and subcutaneous tissue, unspecified; I10 Essential (primary) hypertension; K59.00 Constipation, unspecified; Z20.822 Contact with and (suspected) exposure to COVID-19; E78.2 Mixed hyperlipidemia; E11.9 Type 2 diabetes mellitus without complications; E03.9 Hypothyroidism, unspecified; B96.5 Pseudomonas (aeruginosa) (mallei) (pseudomallei) as the cause of diseases classified elsewhere; Z79.2 Long term (current) use of antibiotics; Z79.84 Long term (current) use of oral hypoglycemic drugs; Z79.890 Hormone replacement therapy; Z79.899 Other long term (current) drug therapy; Z82.49 Family history of ischemic heart disease and other diseases of the circulatory system; Z85.3 Personal history of malignant neoplasm of breast; Z86.14 Personal history of Methicillin resistant Staphylococcus aureus infection; Z92.21 Personal history of antineoplastic chemotherapy; Z92.3 Personal history of irradiation; Z98.1 Arthrodesis status; Y83.8 Other surgical procedures as the cause of abnormal reaction of the patient, or of later complication, without mention of misadventure at the time of the procedure
CPT/HCPCS: 36573; 72100; 80048; 80202; 82565; 83036; 83735; 84145; 84443; 85025; 85652; 86850; 86900; 86901; 87070; 87075; 87077; 87186; 87205; 87635; 88300; 88304

== ENCOUNTER → 2022-11-16 | Outpatient (CLI) | payer MEDICARE, BC ==
[2022-11-16 14:20] LABS: HCT 38.3 % (37.2-46.3); MCHC 31.3 g/dL (32.0-37.0); MCV 92.5 fL (80.0-97.0); Mean Platelet Volume 10.7 fL (9.5-12.2); NRBC Per 100 WBC 0 /100 WBCS (0.0-0.0); Platelet Count 184 X 10*3/uL (140-440); RBC 4.14 X 10*6/uL (4.10-5.20); RDW 14.6 % (11.5-14.5); WBC 5.01 X 10*3/uL (4.50-10.00)
[2022-11-16 17:30] LABS: African American GFR (CKD) 71.7 (60.0-200.0); Anion Gap 9.3 mmol/L (10.00-18.00); Blood Urea Nitrogen 14.9 mg/dL (9.0-27.0); Carbon Dioxide 30.3 mmol/L (20.0-27.5); Non-African American GFR(CKD) 61.9 (60.0-200.0); Potassium 4.4 mmol/L (3.5-5.5)
== END | disposition home or self-care (01) ==
LOC: LABPAT 10:21
PROVIDERS: ATTEND Internal Medicine
DX: Z01.812 Encounter for preprocedural laboratory examination (principal); R94.39 Abnormal result of other cardiovascular function study
CPT/HCPCS: 80051; 82565; 84520; 85027

== ENCOUNTER 2022-11-23 08:52 | Day surgery (SDC) | payer BC, MEDICARE ==
[~2022-11-23 08:52] MED LIST changes: -ACETAMINOPHEN TAB 500 MG TAB PO PRN; +ALPRAZolam 0.25 MG TAB PO PRN; +ALPRAZolam 0.5 MG TAB PO PRN; +ASPIRIN 325 MG TAB PO ONE; -DEXAMETHASONE SOD PHOSPHATE 4 MG/ML 1 ML VIAL IV ONE; -HYDROmorphone 0.5 MG/0.5 ML SYRINGE IVP PRN; +NITROGLYCERIN SL TABS 0.4 MG TAB SUBLINGUAL PRN; -ONDANSETRON 4 MG/2 ML VIAL IVP ONE; -ONDANSETRON 4 MG/2 ML VIAL IVP PRN; +SODIUM CHLORIDE 0.9% 1,000 ML in EMPTY BAG 1 BAG IV SCH; -TRANEXAMIC ACID 1,000 MG in SODIUM CHLORIDE 0.9% 100 ML IVPB PRN
[2022-11-23 09:37] LABS: Glucose,Whole Blood 175 mg/dL (70-110)
[2022-11-23 09:39] VITALS: RESP 18; TEMP 98
[2022-11-23] MEDS ORDERED: fentaNYL (PF) 50 MCG/ML 2 ML AMP ONE (10:23)
[2022-11-23] MEDS ORDERED: VERAPAMIL 2.5 MG/ML 2 ML AMP ONE (10:23)
[2022-11-23] MEDS ORDERED: fentaNYL (PF) 50 MCG/ML 2 ML AMP IV ONE (10:38)
[2022-11-23] MEDS: MIDAZOLAM 2 MG/2 ML VIAL IV ONE ×2 (10:38→10:40)
[2022-11-23] MEDS ORDERED: LIDOCAINE 1% INJ 10MG/ML (5 ML VIAL-PF) SQ ONE (10:40)
[2022-11-23] MEDS ORDERED: VERAPAMIL SYRINGE (5 MG/10 ML) INTRAARTER ONE (10:43)
[2022-11-23] MEDS ORDERED: HEPARIN SODIUM 1,000 UN/ML (10ML VL) IV ONE (10:45)
[2022-11-23] MEDS ORDERED: IOPAMIDOL-370 125ML BTL INJ ONE (10:57)
--- NOTE | 2022-11-23 11:21 | P.CARDCATH ---
Description of Procedure: PROCEDURES PERFORMED: Left heart catheterization, bilateral coronary angiography INDICATION: Cardiomyopathy, abnormal stress test CONSENT:I have discussed the risks, benefits and alternative therapies for the above-mentioned procedure and for both sedation/analgesia as well as necessary blood product administration, if indicated, as they pertain to this patient. The patient has indicated understanding and acceptance of the risks and procedures discussed. PROCEDURE: After the risks, benefits and alternatives of the above mentioned procedure explained in detail with the patient, informed consent was obtained. Patient was taken to the catheterization lab and prepped and draped in usual fashion. 1% lidocaine was used to anesthetize the right radial artery. A 6- Russian sheath was placed in the right radial artery using modified Seldinger technique. Left coronary angiography was performed with a 5-Russian JL 3.5 catheter and right coronary angiography was performed with a 5-Russian JR5 catheter in various views. A 5-Russian FR5 catheter was inserted into the left ventricle and pressure measurements were obtained. A 6-Russian angled pigtail catheter was inserted into the left ventricle and left ventriculogram was performed in the KIRK projection with power injection. The right radial sheath was removed and a TR band was placed with hemostasis achieved. The patient tolerated the procedure well. Patient was transported back to the post catheterization holding area in stable condition. Conscious Sedation: Patient was monitored under the direct supervision of vision of myself for conscious sedation using Versed and fentanyl for a total duration of 19 minutes HEMODYNAMICS: Irritable: 154/76 LV: 148/80, LVEDP 23 SELECTIVE CORONARY ARTERIOGRAPHY: LEFT MAIN: The left main is a large caliber vessel which bifurcates into the LAD and circumflex. There is no significant stenosis. LEFT ANTERIOR DESCENDING CORONARY ARTERY: LAD is a large caliber vessel which wraps around to the apex. There is no significant stenosis. LEFT CIRCUMFLEX CORONARY ARTERY: Left circumflex is a moderate caliber vessel without significant stenosis. RIGHT CORONARY ARTERY: The right coronary artery is a large caliber vessel which gives off a PDA and PLV branch and is the dominant vessel. There is no significant stenosis. LEFT VENTRICULGRAM: Left ventricular ejection fraction 45% with mild global hypokinesis, no mitral regurgitation FINAL IMPRESSION: 1. Normal coronary arteries as described above. 2. Elevated left sided filling pressures 3. Left ventricular ejection fraction 45% PLAN: 1. Aggressive risk factor modification per most recent ACC/AHA guidelines. 2. Follow-up in the office in 1-2 weeks.
[2022-11-23 13:52] VITALS: BP 136/65; PULSE 75
== END 2022-11-23 13:54 | disposition home or self-care (01) ==
LOC: CATHCVL 08:52
PROVIDERS: ATTEND Internal Medicine
DX: I42.9 Cardiomyopathy, unspecified (principal); I11.0 Hypertensive heart disease with heart failure; I50.22 Chronic systolic (congestive) heart failure; E11.40 Type 2 diabetes mellitus with diabetic neuropathy, unspecified; E78.5 Hyperlipidemia, unspecified; Z82.49 Family history of ischemic heart disease and other diseases of the circulatory system; Z85.3 Personal history of malignant neoplasm of breast; Z92.21 Personal history of antineoplastic chemotherapy; Z92.3 Personal history of irradiation; Z79.82 Long term (current) use of aspirin; Z79.84 Long term (current) use of oral hypoglycemic drugs; Z79.899 Other long term (current) drug therapy
CPT/HCPCS: 93458; C1769; C1894; J2250; J2001; J3010; J1644; Q9967

== ENCOUNTER → 2023-08-04 | Day surgery (SDC) | payer BC, MEDICARE ==
[~2023-08-04] MED LIST changes: -ALPRAZolam 0.25 MG TAB PO PRN; -ALPRAZolam 0.5 MG TAB PO PRN; -ASPIRIN 325 MG TAB PO ONE; +LIDOCAINE 1% INJ 10MG/ML (20 ML MDV) ONE; +LIDOCAINE 1% INJ 10MG/ML (30 ML VIAL-PF) SQ ONE; -NITROGLYCERIN SL TABS 0.4 MG TAB SUBLINGUAL PRN; -SODIUM CHLORIDE 0.9% 1,000 ML in EMPTY BAG 1 BAG IV SCH; +VANCOMYCIN 1,000 MG in SODIUM CHLORIDE 0.9% 250 ML IVPB STA; +VANCOMYCIN 1,500 MG in SODIUM CHLORIDE 0.9% 500 ML 500 ML IVPB PRN
[2023-08-04 10:33] LABS: Basophils % (A) 1 %; Eosinophils # (A) 0.1 k/uL (0-0.7); Eosinophils % (A) 3 %; HCT 36.9 % (34.0-46.0); HGB 12.1 gm/dL (11.4-16.0); Lymphocytes # (A) 1.2 k/uL (1.0-4.8); Lymphocytes % (A) 26 %; MCH 29.9 pg (25.0-35.0); MCHC 32.8 g/dL (31.0-37.0); MCV 91.2 fL (80.0-100.0); Mean Platelet Volume 8.1; Monocytes # (A) 0.3 k/uL (0-1.0); Monocytes % (A) 7 %; Neutrophils # (A) 2.8 k/uL (1.3-7.7); Neutrophils % (A) 60 %; Platelet Count 184 k/uL (150-450); RBC 4.04 m/uL (3.80-5.40); RDW 14.6 % (11.5-15.5); WBC 4.7 k/uL (3.8-10.6)
[2023-08-04 10:37] VITALS: BP 130/59; PULSE 78; RESP 16; TEMP 98.5
[2023-08-04 10:43] LABS: ALT 54 U/L (4-34); AST 70 U/L (14-36); African American GFR (CKD) >90 (>60 ml/min/1.73 sqM); Albumin 4.4 g/dL (3.5-5.0); Alkaline Phosphatase 66 U/L (38-126); Anion Gap 11 mmol/L; Blood Urea Nitrogen 14 mg/dL (7-17); Calcium 10.2 mg/dL (8.4-10.2); Carbon Dioxide 27 mmol/L (22-30); Chloride 99 mmol/L (98-107); Glucose 186 mg/dL (74-99); Non-African American GFR(CKD) >90 (>60 ml/min/1.73 sqM); Potassium 4.3 mmol/L (3.5-5.1); Sodium 137 mmol/L (137-145); Total Bilirubin 1.2 mg/dL (0.2-1.3); Total Protein 7.4 g/dL (6.3-8.2)
[2023-08-04 10:56] LABS: C Reactive Protein 0.8 mg/dL (<1.0)
--- NOTE | 2023-08-04 11:56 | IR ---
PICC LINE PLACEMENT: HISTORY: Infection requiring long-term antibiotic therapy PROCEDURE: Ultrasound and fluoroscopic guidance of PICC line placement. COMPLICATIONS: None ANESTHESIA: 1. 1% Lidocaine locally. FINDINGS/TECHNIQUE: The procedure was explained to the patient. The risks, complications, benefits and alternatives were discussed and any questions were answered. Informed consent was obtained. The patient was placed supine on the fluoroscopic table and prepped and draped in the usual sterile fash ion. Utilizing a 21 gauge needle and sonographic and fluoroscopic guidance, access in the right bas ilic vein was achieved and there is placement of a 0.018 guidewire. The vein is patent. A 4-F sheat h was placed over the guidewire. The guidewire and dilator were removed and a 4-F. PICC line was nicole sam through the sheath with the tip at the level of the SVC. The sheath was removed, the catheter wa s flushed and sutured into position. The patient was stable throughout the procedure and remained st able upon discharge from the Department of Radiology. The vein puncture was patent under ultrasound. A king scale image was obtained to document patency of the vein punctured. All elements of the maximal barrier technique were utilized. FLUOROSCOPY TIME: DAP 0.77 Gy cm2 IMPRESSION: Successful PICC line placement under ultrasound and fluoroscopic guidance.
[2023-08-04 15:53] LABS: Erythrocyte Sedimentation Rate 39 mm/Hr (0-30)
[2023-08-04 16:07] LABS: Prealbumin 27.2 mg/dL (18.0-42.0)
== END ==
LOC: CATHCVL 09:32
PROVIDERS: ATTEND Radiology Diagnostic Radiology
DX: Z45.2 Encounter for adjustment and management of vascular access device (principal); I10 Essential (primary) hypertension; E11.9 Type 2 diabetes mellitus without complications; Z80.3 Family history of malignant neoplasm of breast; E03.9 Hypothyroidism, unspecified; Z79.85 Long-term (current) use of injectable non-insulin antidiabetic drugs; Z79.84 Long term (current) use of oral hypoglycemic drugs; Z79.82 Long term (current) use of aspirin; Z79.890 Hormone replacement therapy; Z79.899 Other long term (current) drug therapy; Z98.890 Other specified postprocedural states; Z79.2 Long term (current) use of antibiotics
CPT/HCPCS: 36573; 84134; 80053; 85652; 85025; 86140; J3370; J2001

== ENCOUNTER → 2023-09-08 | Outpatient (CLI) | payer BC, MEDICARE ==
--- NOTE | 2023-08-18 12:54 | US ---
EXAMINATION TYPE: US arterial LE single level DATE OF EXAM: 08/18/2023 9:52 AM CLINICAL INDICATION: Female, 63 years old with history of E11.621 TYPE 2 DIABETES MELLITUS WITH FOOT ULCER; wound left lateral foot for 1 month History of: Smoker: no Hypertension: yes Diabetic: yes Hyperlipidemia: yes TIA/CVA: no Previous Vascular Surgery: no CA: no Vascular Ulcers: yes, left Claudication: no Gangrene: no Doppler Waveforms: Right: Multiphasic Left: Multiphasic Right Brachial Pressure: 165 Left Brachial Pressure: deferred due to breast surgery Ankle-Brachial Indices: Right: 1.18 Left: 1.15 Toe Brachial Indices: Right: 1.01 Left: 0.96 IMPRESSION: Normal ALEE.
--- NOTE | 2023-09-08 18:37 | NM ---
EXAMINATION TYPE: NM bone 3 phase DATE OF EXAM: 09/08/2023 COMPARISON: NONE. Plain film correlation not available this location HISTORY: Open sore left lateral foot Delayed whole-body scanning was performed following the injection of 24 mCi Tc 99m MDP. Images were acquired 5 hours post injection. FINDINGS: Blood flow: There is increased radiotracer to the left foot compared to the right foot. Blood pool is increased radiotracer accumulation within the left hindfoot and along the distal fourth and fifth digit region on blood pool. Static images: There is intense uptake within the mid foot with extension along the lateral aspect of the proximal lateral metatarsal region. IMPRESSION: 1. There is increased radiotracer accumulation within the proximal left midfoot on blood flow, blood pool, and static images. Clinical correlation recommended for osteomyelitis. This may have some exten t into the proximal lateral metatarsals. 2. Suspicious uptake within the calcaneus is not identified.
== END | disposition home or self-care (01) ==
LOC: RADUSWWP 08-18 09:28 → RADNMMAIN 07:15
PROVIDERS: ATTEND Family Medicine
DX: E11.621 Type 2 diabetes mellitus with foot ulcer (principal); I10 Essential (primary) hypertension; E11.9 Type 2 diabetes mellitus without complications; E78.5 Hyperlipidemia, unspecified
CPT/HCPCS: 78315; 93922

== ENCOUNTER → 2023-10-19 | Outpatient (CLI) | payer BC, MEDICARE ==
[2023-10-19 18:56] LABS: Albumin 4.5 g/dL (3.8-4.9); Albumin/Globulin Ratio 1.73 Ratio (1.60-3.17); Bilirubin, Conjugated 0.25 mg/dL (0.20-0.40); Bilirubin,Unconjugated 0.55 mg/dL (0.20-1.00); C Reactive Protein 0.6 mg/dL (0.00-0.80); Globulin 2.6 g/dL (1.6-3.3); Total Bilirubin 0.8 mg/dL (0.3-1.2); Total Protein 7.1 g/dL (6.2-8.2)
[2023-10-19 19:08] LABS: Hepatitis A Antibody IgM Nonreactive; Hepatitis B Core IgM Nonreactive; Hepatitis B Surface Antigen Nonreactive; Hepatitis C IgG Antibody Nonreactive
== END | disposition home or self-care (01) ==
LOC: LABWHC1 14:12
PROVIDERS: ATTEND Internal Medicine Infectious Disease
DX: L02.212 Cutaneous abscess of back [any part, except buttock and flank] (principal); B19.9 Unspecified viral hepatitis without hepatic coma
CPT/HCPCS: 36415; 80074; 80076; 85652; 86140